=== PATIENT | female | born 1950 | race Caucasian/White ===

== ENCOUNTER 2021-10-05 02:51 | Inpatient (IN) | payer MEDICARE, MEDICAID, SELFPAY ==
[2021-10-05] VITALS (36 sets, daily range): BP systolic 74–114; BP diastolic 49–104; PULSE 14–107; RESP 14–76; TEMP 36.1–36.7; O2SAT 73–100; BMI 30.7
--- NOTE | 2021-10-05 02:52 | PCM.HP.STD ---
HPI - General General Date of Admission: 10/05/21 HPI Narrative AVIVA STAPLETON, is a 72 F with an unclear history is directly admitted in ICU on ventilator state from [place] [facility] after she went there `for shortness of breath, bilateral lower extremity edema and dyspnea. As per the ER physician, Dr Benítez, she does not have a formal diagnosis of CHF or COPD and has never had been tested/PFT. She does not have medical record here in [facility]. She has chronic bilateral lower extremity edema. She has history of coronary artery disease and some biliary pathology unclear. She was found to have Covid rapid antigen negative there. proBNP was elevated about 5000. Twelve-lead EKG normal sinus rhythm. High-sensitivity troponin normal. Initial venous blood gas shows 7.3/mixed PCO2 74 on 3 L of oxygen. Thereafter she was intubated for worsening shortness of breath. After intubation, ABG 7.4 2/45/191/bicarb 30 on 60% FiO2, AC mode ventilator. Patient also was hypotensive after given Diprivan, fentanyl bolus, IV corneum and Versed as patient was agitated. UA shows pyuria, nitrite and LE positive, 2+ bacteria. ECG shows normal sinus rhythm at 73 beats 1, QTC 403 ms. CTA negative for PE but shows bilateral small pleural effusion, left lateral and right with overlying atelectasis. No mediastinal lymphadenopathy. Mild ascites. Chronic mild compression deformity of T3 T6 and T7 with diffuse osteopenia and multilevel degenerative changes. Left IJ CVC catheter was inserted by ER physician for hypotension but patient not on vasopressor but received several IV fluid boluses. Patient came with high blood propofol drip. Liver chemistry shows elevated alkaline phosphatase 413, AST 59. Total bili 1.6. Past medical history: Unclear. Possible CHF, bipolar disorder, compression deformity of thoracic vertebrae as mentioned above. 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 Past surgical history: Hysterectomy. Family history unclear. Social history: Lifelong smoker. [facility] Social History Smoking Status: Unknown if ever smoked ROS ROS Narrative 12 ROS unobtainable as patient is intubated on ventilator Review of Systems ROS Unobtainable: due to endotracheal tube Physical Exam Narrative General: Intubated, sedated on propofol drip. HEENT: Atraumatic, PERRLA, EOMI, Normocephalic Oral: ET tube. 7.5 mm. Neck: Left IJ CVC catheter. No hematoma/bruise. Supple, No JVD, Negative Carotid Bruits Lungs: Air entry diminished in bilateral lung bases. No crepitation/rhonchi Cardiovascular: Regular rate, Regular Rhythm, Normal S1, Normal S2, No murmurs Abdomen: Bowel Sounds Present, Soft, Non Tender, Non-Distended. Mild splenomegaly. : No renal angle tenderness. No suprapubic tenderness. Extremities: Bilateral leg edema, lymphedema, upper extremities also edematous. Skin: Sacral decubitus ulcer, unstageable. Macerated LLE. Musculoskeletal: No Tenderness to Palpation of Joints or Extremities Neurological: Detailed neuro examination unobtainable. Intubated, sedated Psych/Mental Status: Sedated. Assessment & Plan Assessment/Plan (1) Acute and chronic respiratory failure with hypoxia: PLAN: 1. Acute hypoxic respiratory failure, exact etiology unclear possible CHF exacerbation/COPD exacerbation/pneumonia: Patient is being admitted directly in ICU from pulmonary in ER. Her past history is unclear. Patient is not on vasopressor. Started on IV Zosyn empirically. Pneumonia work-up ordered including respiratory panel, urinary antigens, blood culture and endotracheal sputum culture.. Rapid Covid antigen negative. Chest x-ray shows bilateral small pleural effusion, left more than right with overlying atelectasis but no pneumothorax or airspace consolidation. 2D echo is ordered. Consider Lasix when BP stable or hemodynamics permit. EKG sinus rhythm. Cycle high-sensitivity troponins. Labs ordered. Repeat chest x-ray 2. Coronary artery disease with possible CHF exacerbation: Unclear history of whether she had a stents or not. No prior record of echo or a stress test or cardiac cath. She has interstitial edema of lower extremities consistent with third volume spacing. Obtain medical records from PCP office. 3. Chronic liver disease possible primary biliary cholangitis: Alkaline phosphatase and AST elevated. Right upper quadrant sonogram ordered. 4. Sacral decubitus ulcer, unstageable, lower extremity macerated skin but no open ulcer in LE. Wound care nurse consulted. Other comorbidities include bipolar disorder, compression deformity of lower thoracic spine, osteoporosis and multiple old rib fracture as per CT scan: Multiple comorbidities complicates the present care and expect difficult and delay recovery Living will/advanced directive/end of life care: Unverified. Patient came intubated state. Full code unverified. Charges/Coding Visit Charges Inpatient E&M: 32271 Init Hosp L3
--- NOTE | 2021-10-05 03:16 | NURSING ---
PANDEMIC DOCUMENTATION DATE: 10/05/21 TIME: 0231
[2021-10-05 03:41] LABS: Base Excess 4 mmol/L (-2 to +2); Bicarbonate 27.4 mmol/L (22-26); Blood Gas Specimen Type ART; FI02 40; Mode AC; O2 Delivery Device Adult Vent; PEEP 5; PO2 65 mmHG (75-100); RR 14; SITE L Radial; SO2 93 % (95-99); Total Carbon Dioxide 29 mmol/L; Vt 450; pCO2 38.9 mmHg (35-45); pH 7.46 (7.35-7.45)
[2021-10-05 04:05] LABS: Bacteria 0 SEEN /hpf (None Seen); Mucous, Urine 0 SEEN /hpf (<or=2+); Squamous Epithelial Cells - UA 0 SEEN /hpf (5-10); White Blood Cells 0 SEEN /hpf (0-5)
[2021-10-05 04:14] LABS: Color, Urine Amber (Yellow); Glucose, Dipstick Normal (Normal); Ketone-Dipstick 5 mg/dl (Negative); Leukocyte Esterase-Dipstick 25 /ul (Negative); Nitrite-Dipstick Negative (Negative); Occult Blood-Urine 250 /ul (Negative); Protein-Dipstick 100 mg/dl (Negative); Urine Clarity Clear (Clear); Urine Urobilinogen 4 mg/dl (Normal); Urine pH 6.5 (5.0 - 8.0)
[2021-10-05 04:17] LABS: Absolute Neutrophil Count 11.6 X10^3/uL (2.0-7.7); Basophil# 0.01 X10^3/uL; Basophil% 0.1 % (0-1); Hemoglobin 13.3 g/dL (12.0-15.0); Lymphocyte % 3.3 % (19-41); Mean Corp Hgb Conc 30.9 g/dL (32-36); Mean Corpuscular Hgb 30.4 pg (27.0-32.0); Mean Corpuscular Volume 98.4 fL (81-99); Mean Platelet Vol. 8.7 fl (6.2-12.0); Monocyte# 0.13 X10^3/uL; Monocyte% 1.1 % (0-10); NRBC Flagged by Analyzer 0 % (0-5); Neutrophil # 11.58 X10^3/uL (2.7-7.7); POSITIVE COUNT YES; POSITIVE DIFFERENTIAL YES; Platelet Count 50 K/mm3 (150-450); RBC Distribution Width CV 15.1 % (11.6-14.6); RBC Distribution Width SD 53.4 fl (35.1-43.9); Red Blood Count 4.37 M/mm3 (4.2-5.4); White Blood Count 12.2 K/mm3 (4.4-11.0)
[2021-10-05 04:18] LABS: Differential Indicated SCAN CRITERIA MET
[2021-10-05 04:24] LABS: Urine Bilirubin Dipstick 1 mg/dL (Negative)
[2021-10-05 04:29] LABS: Red Blood Cells-Urine > 100 SEEN /hpf (0-5)
[2021-10-05 04:31] LABS: ALB/GLOB Ratio 0.5 RATIO (0.9-2.4); AST(SGOT) 36 U/L (15-37); Alanine Aminotransfer ALT/SGPT 51 U/L (13-56); Albumin, Serum 1.8 g/dL (3.2-5.0); Alkaline Phosphatase 326 U/L (45-117); Anion Gap 5 (5-15); BUN 25 mg/dL (7-18); BUN/Creat Ratio 31.6 RATIO (10-20); Calcium,Total 8.2 mg/dL (8.5-10.1); Chloride 103 mmol/L (98-107); Creatinine, Serum 0.79 mg/dL (0.55-1.02); EST Glomerular Filtration Rate 76 mL/min (>60); Est Glom Filt Rate - Afr Amer 92 mL/min (>60); Globulin 3.7 g/dL (2.2-4.2); Glucose 117 mg/dL (74-106); Magnesium 1.9 mg/dL (1.6-2.6); Potassium 3.7 mmol/L (3.5-5.1); Protein, Total 5.5 g/dL (6.4-8.2); Sodium Level 139 mmol/L (136-145)
[2021-10-05 04:37] LABS: Lactic Acid 1.6 mmol/L (0.4-1.9)
[2021-10-05] MEDS: 0.9% Saline Lock 10 ML Syringe IV (06:46)
[2021-10-05] MEDS: Propofol 10MG/Ml 1,000 MG/100 ML Bottle 5 MG CONT INF ×2 (06:47→18:07)
--- NOTE | 2021-10-05 06:54 | CON.PCM.CC_ITS ---
Assessment & Plan Assessment/Plan (1) Acute and chronic respiratory failure with hypoxia: PLAN: RECOMMENDATIONS: 1. Continue patient on assist control mode of mechanical ventilation. Wean F iO2 for saturations greater than 90%. 2. Start scheduled bronchodilator therapy. 3. Continue empiric antimicrobials, while awaiting infectious work-up. 4. Echocardiogram is pending. 5. Start appropriate GI prophylaxis. Continue appropriate DVT prophylaxis. IMPRESSIONS: 1. Acute hypoxemic respiratory failure The exact precipitating etiology for the patient's acute respiratory decompensation is not clear. However, possible etiologies could include pneumonia, decompensated heart failure or sepsis with an inability to compensate for increased metabolic demand. At the present time, the patient's ventilator requirements are minimal. She will be continued on assist control mode of mechanical ventilation, with FiO2 weaned for saturations greater than 90%. Unfortunately, due to her tenuous hemodynamics, IV Lasix is unable to be admini stered. Plan to continue empiric antimicrobials. Tube feeds can be initiated today from my perspective. Start scheduled bronchodilator therapy. Echocardiogram is currently pending. 2. Thrombocytopenia Unclear chronicity. Continue to monitor daily. No indication for transfusion of platelets. Recommend holding heparin-containing products. 3. History of biliary cirrhosis/hypertension/hypothyroidism/GERD/COPD Complicates care, management, recovery and prognosis. Continue home medications as indicated. TIME: 36 minutes of critical care time, independent of procedures, was spent addressing the patient's acute hypoxemic respiratory failure, review of all data and collaboration with the care team. HPI Consult Data Date of Consult: 10/05/21 HPI Narrative Reason for Consultation: Acute hypoxemic respiratory failure HPI Narrative: The patient is a 71-year-old female, with a history as outlined below, who presented to the intensive care unit on October 05 as a transfer of care from [facility]. The patient had presented to the outside hospital ED on October 04 with complaints of shortness of breath and lower extremity linda a. According to documentation received, the patient has a history of primary biliary cirrhosis, hypertension, hypothyroidism, GERD, and COPD. Outside hospital work-up included the following: Coronavirus antigen testing was negative. BNP was elevated to 4817. Arterial blood gas on 3 L/min revealed a pH of 7.3 with a PCO2 of 74 and PO2 of 89. CTA chest showed no evidence for PE. Small bilateral pleural effusions were noted. The patient did have a urinalysis completed which was positive for nitrites and leukocyte esterase along with 2+ urine bacteria. On arrival to the intensive care unit, the patient was noted to be afebrile and hemodynamically stable. Her most recent lab work revealed a white blood cell count of 12,000 with a platelet count of 50,000. Repeat arterial blood gas on assist control mode mechanical ventilation revealed a pH of 7.46 with a PCO2 of 38 and PO2 of 65. Chemistry profile was unremarkable. [facility] Medical History Bipolar disorder Congestive heart failure (CHF) COPD (chronic obstructive pulmonary disease) Home Medications albuterol sulfate 10/05/21 [History Last Taken Unknown] benzonatate mg PO 10/05/21 [History Last Taken Unknown] dicyclomine mg 10/05/21 [History Last Taken Unknown] fluconazole 10/05/21 [History Last Taken Unknown] fluticasone propion-salmeterol [Advair Diskus] INHALATION 10/05/21 [History Last Taken Unknown] methocarbamol mg 10/05/21 [History Last Taken Unknown] metoprolol tartrate 10/05/21 [History Last Taken Unknown] mupirocin TOPICAL 10/05/21 [History Last Taken Unknown] nitroglycerin mg 10/05/21 [History Last Taken Unknown] oxycodone 10/05/21 [History Last Taken Unknown] pantoprazole PO 10/05/21 [History Last Taken Unknown] spironolactone 10/05/21 [History Last Taken Unknown] torsemide mg 10/05/21 [History Last Taken Unknown] triamcinolone acetonide applic TOPICAL 10/05/21 [History Last Taken Unknown] ursodiol 10/05/21 [History Last Taken Unknown] Allergy/AdvReac Type Severity Reaction Status Date / Time cyclobenzaprine Allergy Swelling Verified 10/05/21 04:45 doxycycline Allergy Hives Verified 10/05/21 04:45 Iodinated Contrast Media [CT] Allergy Swelling Verified 10/05/21 04:45 Sulfa (Sulfonamide Allergy Swelling Verified 10/05/21 04:45 Antibiotics) acetaminophen AdvReac Nausea Verified 10/05/21 04:45 [From Tylenol-Codeine #3] codeine AdvReac Nausea Verified 10/05/21 04:45 [From Tylenol-Codeine #3] erythromycin base AdvReac Upset Verified 10/05/21 04:45 Stomach metronidazole AdvReac Upset Verified 10/05/21 04:45 Stomach tetracycline AdvReac PT UNSURE Verified 10/05/21 04:45 OF REACTION Family History unable to obtain Social History Smoking Status: Unknown if ever smoked ROS Review of Systems ROS Unobtainable: due to encephalopathy and due to endotracheal tube Physical Exam Const no apparent distress General Appearance: intubated and patient mechanically ventilated Nutritional Appearance: obese HEENT normocephalic and head/scalp atraumatic Mouth: endotracheal tube in place and OG tube in place Eyes PERRL, EOMs intact bilaterally and conjunctivae normal Neck supple General: trachea midline and CVC in place Chest inspection of chest normal Resp Auscultation: diminished lung sounds Cardio regular rate and regular rhythm GI normal to inspection, nondistended, normoactive bowel sounds Extremity Extremity Narrative: Lymphedema of upper extremities noted as well. General Extremity: edema bilateral lower extremity Skin Skin Narrative: Bilateral lower extremity erythema Neuro Sensorium / Orientation: sedated on vent Lab / Micro Data Result Diagrams: 10/05/21 04:00 10/05/21 04:00 Labs: Laboratory Results - last 24 hr 10/05/21 03:45: Urine Color Pati, Urine Clarity Clear, Urine pH 6.5, Ur Specific [place] 1.010, Urine Protein 100 H, Urine Glucose (UA) Normal, Urine Ketones 5 H, Urine Occult Blood 250 H, Urine Nitrite Negative, Urine Bilirubin 1 H, Urine Urobilinogen 4 H, Ur Leukocyte Esterase 25 H, Urine RBC > 100 SEEN, Urine WBC 0 SEEN, Ur Squamous Epith Cells 0 SEEN, Urine Bacteria 0 SEEN, Urine Mucus 0 SEEN 10/05/21 04:00: WBC 12.2 H, RBC 4.37, Hgb 13.3, Hct 43.0, MCV 98.4, MCH 30.4, MCHC 30.9 L, RDW Std Deviation 53.4 H, RDW Coeff of Krissy 15.1 H, Plt Count 50 L*, MPV 8.7, Immature Gran % (Auto) 0.500, Neut % (Auto) 95.0 H, Lymph % (Auto) 3.3 L, Holmes % (Auto) 1.1, Eos % (Auto) 0.0, Baso % (Auto) 0.1, Absolute Neuts (auto) 11.6 H, Absolute Lymphs (auto) 0.40 L, Nucleated RBC % 0 10/05/21 04:00: Sodium 139, Potassium 3.7, Chloride 103, Carbon Dioxide 31.0, Anion Gap 5, BUN 25 H, Creatinine 0.79, Estim Creat Clear Calc 47.10, Est GFR (MDRD) Af Amer 92, Est GFR (MDRD) Non-Af 76, BUN/Creatinine Ratio 31.6 H, Glucose 117 H, Calcium 8.2 L, Magnesium 1.9, Total Bilirubin 1.40 H, AST 36, ALT 51, Alkaline Phosphatase 326 H, Total Protein 5.5 L, Albumin 1.8 L, Globulin 3.7, Albumin/Globulin Ratio 0.5 L 10/05/21 04:00: Lactic Acid 1.6 Micro: Microbiology 10/05/21 03:45 Urine Catheter - Henson Legionella Antigen - Final 10/05/21 03:45 Urine Catheter - Henson Streptococcus pneumoniae Antigen (M - Final ABG Data ABG results: ABG 10/05/21 03:35 Specimen Type ART Sample Site L Radial pH 7.46 H Bicarbonate Actual 27.4 H Total CO2 29 Base Excess 4 H O2 Saturation 93 L O2 % 40 ABG pCO2 38.9 ABG pO2 65 L Noe Test N/A Respiration Rate 14 O2 Delivery Device Adult Vent Vent Mode AC Tidal Volume 450 POC PEEP 5 Charges/Coding Procedures Hospitalists Procedures: 63891 Critial Care 1st Hr
[2021-10-05] MEDS: CHLORHEXIDINE GLUC 2% CLOTH 1 EACH TOWELETTE TOPICAL ×2 (07:12→10:10)
[2021-10-05 07:23] LABS: Troponin-I HS 28 pg/mL (3.0-54.0)
[2021-10-05 08:12] LABS: CPK Total, Creatine Kinase 67 U/L (26-192); Triglycerides 98 mg/dL
[2021-10-05 09:07] LABS: Troponin-I HS 25 pg/mL (3.0-54.0)
[2021-10-05] MEDS: Chlorhexidine 15 ML PO ×2 (10:09→20:55)
--- NOTE | 2021-10-05 10:47 | WOUNDNOTE ---
wound photo: buttocks
--- NOTE | 2021-10-05 10:47 | WOUNDNOTE ---
wound photo: right lower leg
--- NOTE | 2021-10-05 10:48 | WOUNDNOTE ---
wound photo: left dorsal foot
[2021-10-05 11:47] LABS: M R Staph aureus DNA By PCR Negative (Negative); Probe Check PASS; Specimen Processing Control PASS
--- NOTE | 2021-10-05 12:15 | CASEMGMT ---
BELLA VICTORIA ASSESSMENT Pt currently intubated and sedated. BELLA VICTORIA to room to meet with pt's daughter, Aneta Avila, who is at bedside, for initial transition planning/care coordination assessment. BELLA VICTORIA introduced self and role at [facility]. Care providers, pharmacy, and demographics verified/updated at this time. PCP: Luana Pineda NP, in [place] Specialists: none Preferred Pharmacy: [facility] Retail Insurance: [facility], YULISA crossover Prescription Benefit: Yes Living Will/HPOA: Pt does not currently have LW/HCPOA LNOK: Dtr, Aneta Avila. Pt has 2 other daughters and a son. Dtr Mery, and son, Yoshi, have been estranged from pt and have not seen her for about 6 yrs. Dtr, Makayla, has not seen pt since around June of this year. Aneta states she has no contact information for any of them and does not know anyone who would have this information either. Living Arrangements: Lives w/dtr, Aneta, and son, Cheko in 2-story home. Pt is set up on first floor. Pt has Passport services/aide thru [employer] in [place]. Aneta works for [employer] as an aide and gets paid to care for pt thru them. Aneta and Cheko provide all care for pt. Per Aenta, pt has not been eating or sleeping well for the past couple of months. She states she has also been refusing care at times and sometimes will not allow for her to change her depends. Transportation: Aneta and Cheko DME: Has the following DME: shower chair, BSC, walker, W/C, medical alert button, lift chair, and nebulizer HHC/SNF: No hx of SNF. Has had HHC in the past--[facility] in [place]. Pt is not currently active w/HHC agency. PLAN: TBD by course of treatment and progress w/therapy. Lynsey PÉREZ RN, CM
--- NOTE | 2021-10-05 12:40 | CASEMGMT ---
Social Work Per GAVIN Boone pt is receiving services from [employer]. KRIS placed call to [facility] and spoke with pt career development specialist Raeann. Pt is receiving 6hr of aid services a day, 7 days a week through [facility]. Pt also receives home delivered meals and has an emergency response system. Tia is pt new registered nurse hh case manager and has not met with pt yet. KRIS will notify Tia at time of discharge. , . OSWALDO Cruz
[2021-10-05] MEDS: Vital AF 1.2 Cal Liquid 1,000 ML 50 ML GT (12:44)
[2021-10-05 13:17] LABS: Troponin-I HS 20 pg/mL (3.0-54.0)
[2021-10-05] MEDS: Ipratropium/Albuterol Sulfate 3 ML AMPUL.NEB INHALATION (19:05)
--- NOTE | 2021-10-05 20:12 | PCM.HOSP.N ---
Hospitalist Note Patient seen and examined today briefly, she remains sedated and on the ventilator. I talked briefly with pulmonary medicine about her care. Pulmonary medicine feels that the patient may have respiratory failure from CHF. I will order an echocardiogram to be performed tomorrow. Continue present care for now.
--- NOTE | 2021-10-05 20:16 | ECHOCS_ITS ---
Reason For Study: SOB Procedure This was a 2D Doppler, Color Flow transthoracic echocardiogram. The study was technically difficult. Patient intubated, scanned supine. Exam performed portable in ICU/CCU. Left Ventricle Normal LV size. The estimated ejection fraction is 60 %. No evidence for diastolic dysfunction. No regional wall motion abnormalities noted. Right Ventricle Normal RV size. Normal systolic function. Atria Normal left atrium. Normal right atrium. No doppler evidence for ASD. Mitral Valve There is no mitral valve stenosis. No mitral valve insufficiency. Tricuspid Valve There is no tricuspid stenosis. No tricuspid valve insufficiency. Unable to estimate RV systolic pressure due to inadequate jet, pulmonary artery pressure probably normal. Aortic Valve Trisinus/trileaflet aortic valve. There is no aortic stenosis. No aortic valve insufficiency. Pulmonic Valve There is no pulmonic valvular stenosis. No pulmonic valve insufficiency. Great Vessels Normal aortic root. Pericardium/Pleural No pericardial effusion. Medication Diluted definity 2ml given slow IV push to enhance endocardial definition. MMode/2D Measurements & Calculations LVIDd: 3.2 cm IVSd: 1.2 cm Ao root diam: 2.7 cm LVIDs: 1.8 cm LVPWd: 1.3 cm RVDd: 3.0 cm FS: 44.2 % LAV(MOD-sp4): 22.1 ml LA A4 area: 11.8 cm2 LA dimension(2D): 2.3 cm RA A4 area: 12.2 cm2 Doppler Measurements & Calculations MV E max narayan: 62.7 cm/sec Lat Peak E' Narayan: 7.0 cm/sec Med Peak E' Narayan: 4.7 cm/sec MV A max narayan: 93.9 cm/sec E/E' lat: 9.0 E/E' med: 13.3 MV E/A: 0.67 Ao V2 max: 141.8 cm/sec LV V1 max: 117.2 cm/sec PA V2 max: 100.9 cm/sec Ao max P.0 mmHg LV V1 max P.5 mmHg ECHO/Echo Complete W/ Contrast Interpretation Summary The estimated ejection fraction is 60 %. No evidence for diastolic dysfunction. Ordering Physician: Yuri Cruz Referring Physician: Maty Pineda Performed By: Kate Moreno RDCS
[2021-10-06] VITALS (41 sets, daily range): BP systolic 71–113; BP diastolic 42–82; PULSE 53–109; RESP 14–30; TEMP 36.6–37.2; O2SAT 94–100
[2021-10-06] MEDS: Ipratropium/Albuterol Sulfate 3 ML AMPUL.NEB INHALATION ×2 (01:33→14:05)
[2021-10-06] MEDS: Propofol 10MG/Ml 1,000 MG/100 ML Bottle 7.5 MG CONT INF (01:50)
[2021-10-06] MEDS: CHLORHEXIDINE GLUC 2% CLOTH 1 EACH TOWELETTE TOPICAL (03:18)
[2021-10-06] MEDS: 0.9% Saline Lock 10 ML Syringe IV ×2 (03:25→03:27)
[2021-10-06 03:36] LABS: Absolute Lymphocyte Count 0.92 X10^3/uL (0.83-4.51); Absolute Neutrophil Count 5.9 X10^3/uL (2.0-7.7); Basophil# 0.01 X10^3/uL; Basophil% 0.1 % (0-1); Eosinophil# 0.08 X10^3/uL; Eosinophils% 1.1 % (0-5); Hematocrit 35.4 % (37-47); Hemoglobin 11.2 g/dL (12.0-15.0); Lymphocyte # 0.92 X10^3/ul (0.83-4.51); Lymphocyte % 12.5 % (19-41); Mean Corp Hgb Conc 31.6 g/dL (32-36); Mean Corpuscular Hgb 30.5 pg (27.0-32.0); Mean Corpuscular Volume 96.5 fL (81-99); Mean Platelet Vol. 10.5 fl (6.2-12.0); Monocyte# 0.36 X10^3/uL; Monocyte% 4.9 % (0-10); NRBC Flagged by Analyzer 0 % (0-5); Neutrophil # 5.93 X10^3/uL (2.7-7.7); Neutrophil % 80.9 % (47-70); POSITIVE COUNT YES; Platelet Count 54 K/mm3 (150-450); RBC Distribution Width CV 15.8 % (11.6-14.6); RBC Distribution Width SD 54.4 fl (35.1-43.9); Red Blood Count 3.67 M/mm3 (4.2-5.4); White Blood Count 7.3 K/mm3 (4.4-11.0)
[2021-10-06 03:56] LABS: Anion Gap 7 (5-15); BUN 30 mg/dL (7-18); BUN/Creat Ratio 29.4 RATIO (10-20); Chloride 104 mmol/L (98-107); Creatinine, Serum 1.02 mg/dL (0.55-1.02); EST Glomerular Filtration Rate 57 mL/min (>60); Est Glom Filt Rate - Afr Amer 69 mL/min (>60); Estimated Creatinine Clearance 46.18 ml/min; Glucose 108 mg/dL (74-106); Potassium 3.6 mmol/L (3.5-5.1); Sodium Level 142 mmol/L (136-145)
--- NOTE | 2021-10-06 05:55 | US_ITS ---
STUDY: ABDOMINAL ULTRASOUND - RIGHT UPPER QUADRANT REASON FOR VISIT: Female, 71 years old possible biliary disease/PBC/Biliary cancer?, TECHNIQUE: Ultrasound evaluation of the right upper quadrant was performed with real-time and static solis-scale imaging. TECHNICAL QUALITY: Adequate. COMPARISON: None. FINDINGS: Liver: The liver measures 15.5 cm. There is an elongated appearance of the left hepatic lobe with lobulation. There is a heterogeneous echogenicity of the liver. The bile ducts are within normal limits. There is hepatic color flow. The direction of portal flow is hepatopetal. There is no demonstrated mass lesion. Gallbladder: The gallbladder is surgically removed. Common Bile Duct (C.B.D.): The common bile duct measures 6 mm. Pancreas: Normal size of the head, body of the pancreas. There is normal echogenicity of the pancreas. There is no demonstrated pancreatic mass or cyst. There is limited visualization of the tail the pancreas. Right Kidney: Normal size of the right kidney. The right kidney measures 9.9 x 4.2 x 3.8 cm. Normal renal cortex. The right cortex measures 1.1 cm. There is no demonstrated renal mass or cyst. There is no right hydronephrosis. Moderate ascites. US/Abdomen Limited IMPRESSION: Cirrhosis. Ascites. Electronically Signed: Diana Charles MD at 11:59 EST Tel , Service support ,
--- NOTE | 2021-10-06 05:55 | RAD_ITS ---
STUDY: X-RAY CHEST REASON FOR EXAM: Female, 71 years old. TUBES placement TECHNIQUE: Single AP portable view of the chest. COMPARISON: None. FINDINGS: Low-lying ET tube at the cassie, recommend retraction by roughly 4 cm. Enteric tube in the stomach. Left IJ central venous catheter with tip in the mid SVC. Right lung is clear. Left lower lobe airspace disease and effusion RAD/Chest 1 View (Portable) IMPRESSION: Low-lying ET tube at the cassie, recommend retraction by roughly 4 cm. Remainder as above with left lower lobe airspace disease and effusion Electronically Signed: Red Cardenas DO at 0:36 EST Tel , Service support ,
--- NOTE | 2021-10-06 07:13 | PCM.PN.INT ---
Assessment & Plan Assessment/Plan (1) Acute and chronic respiratory failure with hypoxia: PLAN: RECOMMENDATIONS: 1. Continue patient on assist control mode of mechanical ventilation. Wean FiO2 for saturations greater than 90%. 2. Continue scheduled bronchodilator therapy. 3. Continue empiric antimicrobials, while awaiting infectious work-up. 4. Echocardiogram is pending. 5. Continue appropriate GI prophylaxis. 6. Continue to hold pharmacologic DVT prophylaxis due to thrombocytopenia. 7. Start Precedex and wean patient from propofol in hopes that this will assist in weaning from ventilatory support. IMPRESSIONS: 1. Acute hypoxemic respiratory failure The exact precipitating etiology for the patient's acute respiratory decompensation is not clear. However, possible etiologies could include pneumonia, decompensated heart failure or sepsis with an inability to compensate for increased metabolic demand. At the present time, the patient's ventilator requirements are minimal. She will be continued on assist control mode of mechanical ventilation, with FiO2 weaned for saturations greater than 90%. Unfortunately, due to her tenuous hemodynamics, IV Lasix is unable to be administered. Plan to continue empiric antimicrobials. Tube feeds will be continued as tolerated, as well as scheduled bronchodilators. Echocardiogram is currently pending. Will transition the patient from propofol to Precedex today in hopes that this will assist in weaning from invasive mechanical ventilatory support. 2. Thrombocytopenia Unclear chronicity. Continue to monitor daily. No indication for transfusion of platelets. Continue to hold heparin-containing products. 3. History of biliary cirrhosis/hypertension/hypothyroidism/GERD/COPD Complicates care, management, recovery and prognosis. Continue home medications as indicated. TIME: 33 minutes of critical care time, independent of procedures, was spent addressing the patient's acute hypoxemic respiratory failure, review of all data and collaboration with the care team. Subjective Subjective The patient was seen and examined at the bedside this morning. Events from the last 24 hours have been reviewed. The patient is currently afebrile, hemodynamically stable and maintaining appropriate oxygen saturations on assist control mode of mechanical ventilation with an FiO2 requirement of 30% and PEEP of 5. The patient failed her spontaneous breathing trial this morning due to tachypnea and low tidal volumes. She is currently sedated on propofol and fentanyl. She has been tolerant of tube feeds. She is currently documented to be overall net +600 mL for the hospitalization. The patient remains on empiric antimicrobials and bronchodilators. Platelet count remains low at 54,000. Pharmacologic prophylaxis remains on hold. Echocardiogram has yet to be completed. Objective Data Objective Data The patient's most recent lab work, culture data and imaging studies have all been personally reviewed. Respiratory viral panel was negative. Strep and urine Legionella antigens were negative. Blood, urine and sputum cultures are pending. Vital Signs: Vital Signs Temp Pulse Resp BP Pulse Ox 97.8 F 72 14 113/66 100 10/06/21 03:00 10/06/21 07:02 10/06/21 07:02 10/06/21 07:00 10/06/21 07:02 Oxygen Delivery Method Mechanical Ventilator Weight: 84 kg Body Mass Index (BMI) 30.7 Intake & Output: Intake and Output for Last 24 Hours 10/04/21 10/05/21 10/06/21 23:59 23:59 23:59 Intake Total 606.01 / 808.61 476.90 / 476.90 Output Total 350 / 400 125 / 125 Balance 256.01 / 408.61 351.90 / 351.90 Lab / Micro Data Attestation: I reviewed the patient's lab results. Result Diagrams: 10/06/21 03:20 10/06/21 03:20 Labs: Laboratory Results - last 24 hr 10/05/21 03:45: MRSA (PCR) Negative 10/05/21 06:45: Troponin I High Sens 28 10/05/21 06:45: Total Creatine Kinase 67, Triglycerides 98 10/05/21 08:25: Troponin I High Sens 25 10/05/21 12:35: Troponin I High Sens 20 10/06/21 03:20: WBC 7.3, RBC 3.67 L, Hgb 11.2 L, Hct 35.4 L, MCV 96.5, MCH 30.5, MCHC 31.6 L, RDW Std Deviation 54.4 H, RDW Coeff of Krissy 15.8 H, Plt Count 54 L, MPV 10.5, Immature Gran % (Auto) 0.500, Neut % (Auto) 80.9 H, Lymph % (Auto) 12.5 L, [place] % (Auto) 4.9, Eos % (Auto) 1.1, Baso % (Auto) 0.1, Absolute Neuts (auto) 5.9, Absolute Lymphs (auto) 0.92, Nucleated RBC % 0 10/06/21 03:20: Sodium 142, Potassium 3.6, Chloride 104, Carbon Dioxide 31.0, Anion Gap 7, BUN 30 H, Creatinine 1.02, Estim Creat Clear Calc 46.18, Est GFR (MDRD) Af Amer 69, Est GFR (MDRD) Non-Af 57 L, BUN/Creatinine Ratio 29.4 H, Glucose 108 H, Calcium 8.0 L Micro: Microbiology 10/05/21 04:10 Sputum, Tracheal Aspirate Gram Stain - Final 10/05/21 09:25 Mucosa - Nasopharyngeal Respiratory Panel (PCR) - Final 10/05/21 03:45 Urine Catheter - Henson Legionella Antigen - Final 10/05/21 03:45 Urine Catheter - Henson Streptococcus pneumoniae Antigen (M - Final Physical Exam Const no apparent distress General Appearance: intubated and patient mechanically ventilated Nutritional Appearance: obese HEENT normocephalic and head/scalp atraumatic Mouth: endotracheal tube in place and OG tube in place Eyes PERRL, EOMs intact bilaterally and conjunctivae normal Neck supple General: trachea midline and CVC in place Chest inspection of chest normal Resp Auscultation: diminished lung sounds Cardio regular rate and regular rhythm GI normal to inspection, nondistended, normoactive bowel sounds Extremity Extremity Narrative: Lymphedema of upper extremities noted as well. General Extremity: edema bilateral lower extremity Skin Skin Narrative: Bilateral lower extremity erythema Neuro Sensorium / Orientation: sedated on vent Charges/Coding Procedures Hospitalists Procedures: 59491 Critial Care 1st Hr
[2021-10-06] MEDS: Chlorhexidine 15 ML PO ×2 (09:25→20:40)
[2021-10-06 09:40] LABS: International Normalized Ratio 1.1; Prothrombin Time (Protime)PT. 13.4 SECONDS (11.7-14.9)
[2021-10-06 09:41] LABS: Fibrinogen 412 mg/dl (203-444); Partial Thromboplast Time 24.1 Seconds (24.1-36.2)
--- NOTE | 2021-10-06 16:28 | PN.HOSP_ITS ---
Subjective Subjective Patient remains intubated and sedated although she is alert and follows commands. Breathing trial was assessed and patient did poorly with early fatigue and tachypnea. Tolerated about 15 minutes today. Objective Data Objective Data Vital Signs: Vital Signs Temp Pulse Resp BP Pulse Ox 97.9 F 60 14 78/50 L 96 10/06/21 16:00 10/06/21 16:00 10/06/21 16:00 10/06/21 16:00 10/06/21 16:00 Oxygen Flow Rate (L/min) 25 Oxygen Delivery Method Mechanical Ventilator Weight: 84 kg Body Mass Index (BMI) 30.7 Intake & Output: Intake and Output for Last 24 Hours 10/04/21 10/05/21 10/06/21 23:59 23:59 23:59 Intake Total 606.01 / 808.61 1041.37 / 1041.37 Output Total 350 / 400 250 / 250 Balance 256.01 / 408.61 791.37 / 791.37 Lab / Micro Data Result Diagrams: 10/06/21 03:20 10/06/21 03:20 Labs: Laboratory Results - last 24 hr 10/06/21 03:20: WBC 7.3, RBC 3.67 L, Hgb 11.2 L, Hct 35.4 L, MCV 96.5, MCH 30.5, MCHC 31.6 L, RDW Std Deviation 54.4 H, RDW Coeff of Krissy 15.8 H, Plt Count 54 L, MPV 10.5, Immature Gran % (Auto) 0.500, Neut % (Auto) 80.9 H, Lymph % (Auto) 12.5 L, [place] % (Auto) 4.9, Eos % (Auto) 1.1, Baso % (Auto) 0.1, Absolute Neuts (auto) 5.9, Absolute Lymphs (auto) 0.92, Nucleated RBC % 0, Diff Path Review March10/06/21 03:20: Sodium 142, Potassium 3.6, Chloride 104, Carbon Dioxide 31.0, Anion Gap 7, BUN 30 H, Creatinine 1.02, Estim Creat Clear Calc 46.18, Est GFR (MDRD) Af Amer 69, Est GFR (MDRD) Non-Af 57 L, BUN/Creatinine Ratio 29.4 H, Glucose 108 H, Calcium 8.0 L 10/06/21 07:35: PT 13.4, INR 1.1, APTT 24.1, Fibrinogen 412 Micro: Microbiology 10/05/21 08:25 Urine Catheter - Henson Urine Culture - Preliminary Culture exhibits no growth. 10/05/21 04:10 Sputum, Tracheal Aspirate Gram Stain - Final 10/05/21 04:10 Sputum, Tracheal Aspirate Respiratory Culture - Preliminary Appears to be normal respiratory christel. Further studies to follow. 10/05/21 09:25 Mucosa - Nasopharyngeal Respiratory Panel (PCR) - Final 10/05/21 03:45 Urine Catheter - Henson Legionella Antigen - Final 10/05/21 03:45 Urine Catheter - Henson Streptococcus pneumoniae Antigen (M - Final Radiography Diagnostic Testing: Radiology Impression Echocardiogram 10/05/21 20:16 Interpretation Summary The estimated ejection fraction is 60 %. No evidence for diastolic dysfunction. Ordering Physician: Yuri Cruz Referring Physician: Maty Pineda Performed By: Kate Moreno RENEE Abdomen Ultrasound 10/06/21 05:55 IMPRESSION: Cirrhosis. Ascites. Electronically Signed: Dinaa Charles MD at 11:59 EST Tel , Service support , Physical Exam Const alert and no apparent distress Constitutional Narrative: Obese older white female sitting up in bed on a ventilator but awake and following commands, appears comfortable and nontoxic Exam Limitations: language barrier Nutritional Appearance: obese HEENT head/scalp atraumatic and moist oral mucous membranes HEENT Narrative: ET tube in place Head and Scalp: normocephalic Resp normal respiratory effort, no retractions and no use of accessory muscles Resp Narrative: Diminished but clear Auscultation: Negative for crackles, rales, rhonchi or wheezes Cardio regular rate, regular rhythm, S1 normal heart sound, S2 normal heart sound, no murmurs, no rub, no gallops, no clicks and no JVD GI normal to inspection, nondistended, normoactive bowel sounds, soft to palpation, non-tender and non-distended Extremity Extremity Narrative: Bilateral lower extremity edema, some upper extremity edema, no cyanosis or clubbing Peripheral Pulses: Yes pulses 2+ throughout Skin no wounds, no jaundice, no petechiae and no mottling Skin Narrative: Erythema bilateral lower extremities Neuro moves all extremities and no focal motor deficits Neuro Narrative: Follows commands Sensorium / Orientation: awake and alert Psych Psych Narrative: Unable to fully assess secondary to patient being on ventilator Assessment & Plan Assessment/Plan (1) Acute and chronic respiratory failure with hypoxia: (2) Acute anemia: (3) Thrombocytopenia: PLAN: Acute hypoxic respiratory failure -Etiology is currently unclear -Continue empiric antibiotics as cultures are still pending -Sputum is negative other than for possible mild aspiration pneumonia is normal christel are growing -Needing minimal oxygen support -Echo does not show any signs of heart failure with an EF of 60% and normal diastolic function -Hold diuresis -Covid negative -Viral PCR negative -Urine culture negative -Blood cultures are pending -Legionella and strep pneumo antigen negative -We will check bilateral lower extremity Dopplers with edema to rule out DVT -Patient remains intubated and on ventilator although minimal oxygen requirements at this time -Failed weaning trial today and sedation has been altered from propofol to Precedex -Continue tube feed as ordered -Continue GI prophylaxis Mild acute anemia-normocytic -Suspect related to acute hospitalization -No signs of acute blood loss -Continue to monitor Thrombocytopenia -Platelet count is 54,000 today -Coags and fibrinogen assessed to rule out chronic DIC -Peripheral smear pending -Liver ultrasound performed and shows cirrhosis -Unfortunately the spleen was not observed although I suspect with cirrhosis she likely has splenomegaly causing her thrombocytopenia Cirrhosis -Likely the etiology for her edema -INR is 1.1 -Consider GI involvement but will discuss with family first History of biliary cirrhosis -Ultrasound pending -LFTs were normal on admission Hypothyroidism -Continue home levothyroxine GERD -Continue home PPI COPD -Continue aerosols as ordered -Patient was smoking prior to admission Obesity -BMI 30.8 -Complicates overall treatment, prognosis, outcomes DVT prophylaxis -SCDs with thrombocytopenia CODE STATUS -Full code unverified Charges/Coding Visit Charges Inpatient E&M: 45704 Subs Hosp L2
--- NOTE | 2021-10-06 16:29 | VDLE_ITS ---
Reason For Study: Swelling RIGHT LEFT GSV is normal. GSV is normal. CFV is compressible, spontaneous, phasic, CFV is compressible, spontaneous, phasic, competent and demonstrates normal competent, and demonstrates normal augmentation. augmentation. FV is compressible, spontaneous, phasic, FV visualized with color only, unable to competent and demonstrates normal tolerate compression. Normal venous flow augmentation. noted. POP V is compressible, spontaneous, phasic, POP V is compressible, spontaneous, phasic, competent and demonstrates normal competent and demonstrates normal augmentation. augmentation. T/P Trunk is compressible. T/P Trunk is compressible. PTV is compressible. PTV is compressible. RT PerV is compressible. LT PerV is compressible. Procedure This is a venous duplex using B-mode, color flow and spectral Doppler. Exam performed portable in ICU/CCU. A preliminary report was called and/or faxed to RN. VL/Venous Duplex US - Joseph Extrem Interpretation Summary No evidence for acute deep venous thrombosis bilateral lower extremities with p atent and compressible bilateral great saphenous veins. Exam limitations as noted. Ordering Physician: Marguerite Moss Referring Physician: Maty Pineda Performed By: Venessa Briscoe RVT
[2021-10-07] VITALS (31 sets, daily range): BP systolic 90–133; BP diastolic 52–95; PULSE 50–116; RESP 14–39; TEMP 36.6–37; O2SAT 90–100
[2021-10-07] MEDS: Vital AF 1.2 Cal Liquid 1,000 ML 50 ML GT (01:27)
[2021-10-07 05:05] LABS: Absolute Lymphocyte Count 0.79 X10^3/uL (0.83-4.51); Absolute Neutrophil Count 4.2 X10^3/uL (2.0-7.7); Basophil# 0.01 X10^3/uL; Basophil% 0.2 % (0-1); Eosinophil# 0.07 X10^3/uL; Eosinophils% 1.3 % (0-5); Hematocrit 33.7 % (37-47); Lymphocyte # 0.79 X10^3/ul (0.83-4.51); Lymphocyte % 14.6 % (19-41); Mean Corp Hgb Conc 32.6 g/dL (32-36); Mean Corpuscular Hgb 31.3 pg (27.0-32.0); Mean Platelet Vol. 10.1 fl (6.2-12.0); Monocyte# 0.27 X10^3/uL; NRBC Flagged by Analyzer 0 % (0-5); Neutrophil # 4.22 X10^3/uL (2.7-7.7); Neutrophil % 78.2 % (47-70); POSITIVE COUNT YES; RBC Distribution Width CV 15.9 % (11.6-14.6); RBC Distribution Width SD 54.8 fl (35.1-43.9); Red Blood Count 3.51 M/mm3 (4.2-5.4); White Blood Count 5.4 K/mm3 (4.4-11.0)
[2021-10-07 05:20] LABS: Differential Indicated SCAN CRITERIA MET; Platelet Count 42 K/mm3 (150-450)
[2021-10-07 05:29] LABS: Anion Gap 8 (5-15); BUN 31 mg/dL (7-18); Calcium,Total 7.9 mg/dL (8.5-10.1); Chloride 105 mmol/L (98-107); Creatinine, Serum 0.86 mg/dL (0.55-1.02); EST Glomerular Filtration Rate 69 mL/min (>60); Est Glom Filt Rate - Afr Amer 84 mL/min (>60); Estimated Creatinine Clearance 54.77 ml/min; Glucose 165 mg/dL (74-106); Potassium 3.1 mmol/L (3.5-5.1); Sodium Level 142 mmol/L (136-145)
[2021-10-07 05:55] LABS: Differential Comment SCANNED; Platelet Estimate MKD DEC (ADEQ)
--- NOTE | 2021-10-07 06:38 | PN.CC_ITS ---
Assessment & Plan Assessment/Plan (1) Acute and chronic respiratory failure with hypoxia: PLAN: RECOMMENDATIONS: 1. Proceed with a trial of extubation this morning. 2. Once extubated, wean supplemental oxygen to maintain saturations at or above 90%. 3. Bedside swallow evaluation with dietary advancement accordingly. 4. Continue empiric antimicrobials to complete 7-day treatment course. 5. Continue to hold pharmacologic DVT prophylaxis due to thrombocytopenia. 6. Encourage incentive spirometer use and mobilize patient as tolerated. IMPRESSIONS: 1. Acute hypoxemic respiratory failure The exact precipitating etiology for the patient's acute respiratory decompensation is not clear. However, possible etiologies could include pneumonia, decompensated heart failure or sepsis with an inability to compensate for increased metabolic demand. At the present time, the patient's ventilator requirements are minimal. With supportive measures including antimicrobials, the patient was able to be extubated on October 07. Her echocardiogram revealed intact systolic function. Once extubated, supplemental oxygen will be weaned to maintain saturations at or above 90%. I would recommend completing an empiric course of antimicrobials x7 days. Diet can be advanced once swallow evaluation is completed. Encourage incentive spirometer use and mobilize patient as tolerated. 2. Thrombocytopenia Likely secondary to underlying cirrhosis identified on ultrasound. This is a chronic medical condition for the patient. Continue to monitor daily. No indication for transfusion of platelets. 3. History of biliary cirrhosis/hypertension/hypothyroidism/GERD/COPD Complicates care, management, recovery and prognosis. Continue home medications as indicated. TIME: 32 minutes of critical care time, independent of procedures, was spent addressing the patient's acute hypoxemic respiratory failure, review of all data and collaboration with the care team. Subjective Subjective The patient was seen and examined at the bedside this morning. Events from the last 24 hours have been reviewed. The patient is currently afebrile, hemodynamically stable and maintaining appropriate oxygen saturations on pressure support mode mechanical ventilation with an FiO2 requirement of 21%. The patient has done well on her spontaneous breathing trial this morning. She is currently documented to be overall net +2.5 L for the hospitalization. She remains on empiric antimicrobials. Platelet count remains low at 42,000. Potassium is low at 3.1. Objective Data Objective Data The patient's most recent lab work, culture data and imaging studies have all been personally reviewed. Respiratory viral panel was negative. Strep and urine Legionella antigens were negative. Blood, urine and sputum cultures are pending. Vital Signs: Vital Signs Temp Pulse Resp BP Pulse Ox 98.6 F 58 L 26 H 96/54 L 91 10/07/21 04:00 10/07/21 06:00 10/07/21 06:00 10/07/21 06:00 10/07/21 06:00 Oxygen Flow Rate (L/min) 25 Oxygen Delivery Method Mechanical Ventilator Weight: 84 kg Body Mass Index (BMI) 30.7 Intake & Output: Intake and Output for Last 24 Hours 10/05/21 10/06/21 10/07/21 23:59 23:59 23:59 Intake Total 606.01 / 808.61 1972.87 / 2088.37 352.95 / 352.95 Output Total 350 / 400 350 / 500 150 / 150 Balance 256.01 / 408.61 1622.87 / 1588.37 202.95 / 202.95 Lab / Micro Data Attestation: I reviewed the patient's lab results. Result Diagrams: 10/07/21 04:46 10/07/21 04:46 Labs: Laboratory Results - last 24 hr 10/06/21 03:20: WBC 7.3, RBC 3.67 L, Hgb 11.2 L, Hct 35.4 L, MCV 96.5, MCH 30.5, MCHC 31.6 L, RDW Std Deviation 54.4 H, RDW Coeff of Krissy 15.8 H, Plt Count 54 L, MPV 10.5, Immature Gran % (Auto) 0.500, Neut % (Auto) 80.9 H, Lymph % (Auto) 12.5 L, [place] % (Auto) 4.9, Eos % (Auto) 1.1, Baso % (Auto) 0.1, Absolute Neuts (auto) 5.9, Absolute Lymphs (auto) 0.92, Nucleated RBC % 0, Diff Path Review March10/06/21 03:20: Sodium 142, Potassium 3.6, Chloride 104, Carbon Dioxide 31.0, Anion Gap 7, BUN 30 H, Creatinine 1.02, Estim Creat Clear Calc 46.18, Est GFR (MDRD) Af Amer 69, Est GFR (MDRD) Non-Af 57 L, BUN/Creatinine Ratio 29.4 H, Glucose 108 H, Calcium 8.0 L 10/06/21 07:35: PT 13.4, INR 1.1, APTT 24.1, Fibrinogen 412 10/07/21 04:46: WBC 5.4, RBC 3.51 L, Hgb 11.0 L, Hct 33.7 L, MCV 96.0, MCH 31.3, MCHC 32.6, RDW Std Deviation 54.8 H, RDW Coeff of Krissy 15.9 H, Plt Count 42 L*, MPV 10.1, Immature Gran % (Auto) 0.700, Neut % (Auto) 78.2 H, Lymph % (Auto) 14.6 L, [place] % (Auto) 5.0, Eos % (Auto) 1.3, Baso % (Auto) 0.2, Absolute Neuts (auto) 4.2, Absolute Lymphs (auto) 0.79 L, Nucleated RBC % 0, Differential Co mment SCANNED, Diff Path Review March, Platelet Estimate MKD 10/07/21 04:46: Sodium 142, Potassium 3.1 L, Chloride 105, Carbon Dioxide 29.0, Anion Gap 8, BUN 31 H, Creatinine 0.86, Estim Creat Clear Calc 54.77, Est GFR (MDRD) Af Amer 84, Est GFR (MDRD) Non-Af 69, BUN/Creatinine Ratio 36.0 H, Glucose 165 H, Calcium 7.9 L Micro: Microbiology 10/05/21 08:25 Urine Catheter - Henson Urine Culture - Preliminary Culture exhibits no growth. 10/05/21 04:10 Sputum, Tracheal Aspirate Gram Stain - Final 10/05/21 04:10 Sputum, Tracheal Aspirate Respiratory Culture - Preliminary Appears to be normal respiratory christel. Further studies to follow. 10/05/21 09:25 Mucosa - Nasopharyngeal Respiratory Panel (PCR) - Final 10/05/21 03:45 Urine Catheter - Henson Legionella Antigen - Final 10/05/21 03:45 Urine Catheter - Henson Streptococcus pneumoniae Antigen (M - Final Radiography Diagnostic Testing: Radiology Impression Echocardiogram 10/05/21 20:16 Interpretation Summary The estimated ejection fraction is 60 %. No evidence for diastolic dysfunction. Ordering Physician: Yuri Cruz Referring Physician: Maty Pineda Performed By: Kate Moreno, RDRENEE Abdomen Ultrasound 10/06/21 05:55 IMPRESSION: Cirrhosis. Ascites. Electronically Signed: Diana Charles MD at 11:59 EST Tel , Service support , Chest X-Ray 10/06/21 05:55 IMPRESSION: Low-lying ET tube at the cassie, recommend retraction by roughly 4 cm. Remainder as above with left lower lobe airspace disease and effusion Electronically Signed: Red Cardenas DO at 0:36 EST Tel , Service support , Physical Exam Const no apparent distress General Appearance: intubated and patient mechanically ventilated Nutritional Appearance: obese HEENT normocephalic and head/scalp atraumatic Mouth: endotracheal tube in place and OG tube in place Eyes PERRL, EOMs intact bilaterally and conjunctivae normal Neck supple General: trachea midline and CVC in place Chest inspection of chest normal Resp Auscultation: diminished lung sounds Cardio regular rate and regular rhythm GI normal to inspection, nondistended, normoactive bowel sounds Extremity Extremity Narrative: Lymphedema of upper extremities noted as well. General Extremity: edema bilateral lower extremity Skin Skin Narrative: Bilateral lower extremity erythema Neuro Neuro Narrative: Alert and following commands appropriately. Psych Mood & Affect: anxious Charges/Coding Procedures Hospitalists Procedures: [id number] Critial Care 1st Hr
--- NOTE | 2021-10-07 07:08 | NURSING ---
0650: Geno RT with this RN at bedside, Patient extubated. Tolerated well, placed on 2L NC.
--- NOTE | 2021-10-07 09:34 | PN.HOSP_ITS ---
Subjective Subjective Patient was able to be extubated this morning. She is alert and oriented and able to communicate well. She states she has a history of known primary biliary cirrhosis and sounds as if it has progressed to the point where she has had complications related to her liver cirrhosis. She reports that she has had esophageal varices banding done in November and June 2021 for GI bleeds. She has been followed at [facility]. She recently moved to the [facility] from [place] and is currently living with her grandson and daughter. Per discussion with nursing the daughter states her health has declined and the patient does acknowledge this fact. She states that is probably been in the last 18 months that she is really noticed a decline in her health. She was smoking 3 cigarettes prior to admission a day but cut back significantly from previous. We did discuss CODE STATUS and she states she will need to discuss things further with her daughter and we we will leave things as is at this time. She is interested in talking to palliative care with regard to this available options for her so a consult was placed. She does indicate that she is interested in getting back home as soon as possible but is willing to potentially agree to go to rehab temporarily. Objective Data Objective Data Vital Signs: Vital Signs Temp Pulse Resp BP Pulse Ox 98.6 F 63 22 H 104/65 98 10/07/21 04:00 10/07/21 07:00 10/07/21 07:00 10/07/21 07:00 10/07/21 07:33 Oxygen Flow Rate (L/min) 2 Oxygen Delivery Method Nasal Cannula Weight: 87.1 kg Body Mass Index (BMI) 30.7 Intake & Output: Intake and Output for Last 24 Hours 10/05/21 10/06/21 10/07/21 23:59 23:59 23:59 Intake Total 606.01 / 808.61 1972.87 / 2088.37 889.96 / 889.96 Output Total 350 / 400 350 / 500 300 / 300 Balance 256.01 / 408.61 1622.87 / 1588.37 589.96 / 589.96 Lab / Micro Data Result Diagrams: 10/07/21 04:46 10/07/21 04:46 Labs: Laboratory Results - last 24 hr 10/06/21 07:35: PT 13.4, INR 1.1, APTT 24.1, Fibrinogen 412 10/07/21 04:46: WBC 5.4, RBC 3.51 L, Hgb 11.0 L, Hct 33.7 L, MCV 96.0, MCH 31.3, MCHC 32.6, RDW Std Deviation 54.8 H, RDW Coeff of Krissy 15.9 H, Plt Count 42 L*, MPV 10.1, Immature Gran % (Auto) 0.700, Neut % (Auto) 78.2 H, Lymph % (Auto) 14.6 L, [place] % (Auto) 5.0, Eos % (Auto) 1.3, Baso % (Auto) 0.2, Absolute Neuts (auto) 4.2, Absolute Lymphs (auto) 0.79 L, Nucleated RBC % 0, Differential Comment SCANNED, Diff Path Review March, Platelet Estimate MKD 10/07/21 04:46: Sodium 142, Potassium 3.1 L, Chloride 105, Carbon Dioxide 29.0, Anion Gap 8, BUN 31 H, Creatinine 0.86, Estim Creat Clear Calc 54.77, Est GFR (MDRD) Af Amer 84, Est GFR (MDRD) Non-Af 69, BUN/Creatinine Ratio 36.0 H, Glucose 165 H, Calcium 7.9 L Micro: Microbiology 10/05/21 04:10 Sputum, Tracheal Aspirate Gram Stain - Final 10/05/21 04:10 Sputum, Tracheal Aspirate Respiratory Culture - Final Mixed normal respiratory christel. No Streptococcus pneumoniae, beta-hemolytic Streptococcus or Staphylococcus aureus isolated. 10/05/21 08:25 Urine Catheter - Henson Urine Culture - Final Culture exhibits no growth. 10/05/21 04:30 Blood Culture (Wb) - Line Draw Blood Culture - Preliminary No growth in 48 hours. 10/05/21 04:00 Blood Culture (Wb) - Line Draw Blood Culture - Preliminary No growth in 48 hours. 10/05/21 09:25 Mucosa - Nasopharyngeal Respiratory Panel (PCR) - Final 10/05/21 03:45 Urine Catheter - Henson Legionella Antigen - Final 10/05/21 03:45 Urine Catheter - Henson Streptococcus pneumoniae Antigen (M - Final Radiography Diagnostic Testing: Radiology Impression Echocardiogram 10/05/21 20:16 Interpretation Summary The estimated ejection fraction is 60 %. No evidence for diastolic dysfunction. Ordering Physician: Yuri Cruz Referring Physician: Maty Pineda Performed By: Kate Moreno RDCS Abdomen Ultrasound 10/06/21 05:55 IMPRESSION: Cirrhosis. Ascites. Electronically Signed: Diana Charles MD at 11:59 EST Tel , Service support , Chest X-Ray 10/06/21 05:55 IMPRESSION: Low-lying ET tube at the cassie, recommend retraction by roughly 4 cm. Remainder as above with left lower lobe airspace disease and effusion Electronically Signed: Red Cardenas DO at 0:36 EST Tel , Service support , Physical Exam Const alert, oriented x3 and no apparent distress Constitutional Narrative: Obese older white female sitting up in bed extubated, alert and oriented x3, communicates well, mildly tachypneic and weak cough noted. Exam Limitations: no limitations Nutritional Appearance: obese HEENT head/scalp atraumatic and moist oral mucous membranes HEENT Narrative: Edentulous, Mallampati 2, no thrush Head and Scalp: normocephalic Resp normal respiratory effort, no retractions and no use of accessory muscles Resp Narrative: Few scattered rhonchi, moist rhonchorous sounding cough, diffusely diminished, tachypnea with conversational dyspnea Auscultation: rhonchi; Negative for crackles, rales or wheezes Cardio regular rate, regular rhythm, S1 normal heart sound, S2 normal heart sound, no murmurs, no rub, no gallops, no clicks and no JVD GI normal to inspection, nondistended, normoactive bowel sounds, soft to palpation, non-tender and non-distended Extremity Extremity Narrative: Bilateral lower extremity edema, some upper extremity edema most notably in hands bilaterally, no cyanosis or clubbing Peripheral Pulses: Yes pulses 2+ throughout Skin no wounds, no jaundice, no petechiae and no mottling Skin Narrative: Erythema bilateral lower extremities Neuro oriented x3, moves all extremities and no focal motor deficits Neuro Narrative: Follows commands Sensorium / Orientation: awake and alert Psych affect normal Assessment & Plan Assessment/Plan (1) Acute and chronic respiratory failure with hypoxia: (2) Acute anemia: (3) Thrombocytopenia: PLAN: Acute hypoxic respiratory failure -Etiology is currently unclear although suspect related to decompensated liver cirrhosis and COPD/pneumonia -Continue empiric antibiotics as cultures are still pending -Sputum culture shows mixed normal respiratory christel indicative of aspiration -Will narrow to Unasyn and complete 7-day total course--> could transition to oral if patient passes swallow -Speech therapy for swallow -Extubated to 2 L nasal cannula with sats 98-100% -Echo does not show any signs of heart failure with an EF of 60% and normal diastolic function -Lasix IV push x1 dose -Covid negative -Viral PCR negative -Urine culture negative -Blood cultures are negative -Legionella and strep pneumo antigen negative -Bilateral lower extremity Dopplers are pending -Continue GI prophylaxis Mild acute anemia-normocytic -Suspect related to acute hospitalization -No signs of acute blood loss -Continue to monitor Thrombocytopenia -Platelet count is 54,000 today -Coags and fibrinogen assessed to rule out chronic DIC -Peripheral smear pending -Liver ultrasound performed and shows cirrhosis -Unfortunately the spleen was not observed although I suspect with cirrhosis she likely has splenomegaly causing her thrombocytopenia Primary biliary cirrhosis -Patient reporting that Lasix does not work for her -We will try to see if we can get her to take some IV Bumex -Restart Aldactone at 25 mg twice daily although we are confirming dosage with her pharmacy -Likely the etiology for her edema -INR is 1.1 -Patient has been seen at [facility] for this previously and undergone esophageal varices banding twice in the last 12 months -Palliative care has been consulted History of esophageal varices -Status post banding 11/22/2020 and 06/22/2021 -No current signs of GI bleed -Continue to monitor Hypothyroidism -Continue home levothyroxine once dosing is verified GERD -Continue home PPI COPD -Continue aerosols as ordered -Patient was smoking prior to admission Obesity -BMI 30.8 -Complicates overall treatment, prognosis, outcomes DVT prophylaxis -SCDs with thrombocytopenia CODE STATUS -Full code --> discussed this extensively with the patient this morning--> she would like to confer with her daughter before any further decisions has been made we will leave CODE STATUS is full at this time -She is agreeable to talk to palliative care she states that she is interested in getting back home to her grandson's house and it does not sound as if she is ready for hospice care. -Home medications are being confirmed with her pharmacy Charges/Coding Visit Charges Inpatient E&M: 01046 Subs Hosp L2
[2021-10-07] MEDS: Potassium Chloride Oral Soln 20 MEQ/15 ML UDC 40 MEQ NG (09:35)
[2021-10-07] MEDS: CHLORHEXIDINE GLUC 2% CLOTH 1 EACH TOWELETTE TOPICAL (09:38)
[2021-10-07] MEDS: Bumetanide 1 MG/4 ML Vial 4 MG IV (10:27)
[2021-10-07] MEDS: Spironolactone 25 MG Tablet PO ×2 (10:32→21:33)
[2021-10-07] MEDS: Albuterol 2.5 MG/3 ML VIAL.NEB. INHALATION (10:57)
[2021-10-07] MEDS: Ipratropium/Albuterol Sulfate 3 ML AMPUL.NEB INHALATION ×2 (13:12→19:28)
[2021-10-07] MEDS: Acetaminophen 325 MG Tablet 650 MG PO ×2 (14:50→19:38)
--- NOTE | 2021-10-07 16:17 | NURSING ---
Patient's daughter is at the bedside. Discussed patient's condition including COPD, CHF, and liver cirrhosis and that palliative care was consulted. Discussed code status and the difference between full code, DNR CCA with and without intubation and DNRCC. After a very lengthy conversation the patient and her daughter decided to change her code status to DNRCCA DNI. Dr. Moss notified of the patient's wishes.
[2021-10-07] MEDS: Dicyclomine 10 MG Capsule PO (17:46)
[2021-10-07 19:55] LABS: Hepatitis C Antibody Non-Reactive (Nonreactive)
[2021-10-07] MEDS: Ursodiol 250 MG Tablet 500 MG PO (21:33)
[2021-10-08] VITALS (15 sets, daily range): BP systolic 107–130; BP diastolic 61–97; PULSE 72–89; RESP 18–37; TEMP 36.6–36.9; O2SAT 88–100
[2021-10-08] MEDS: Acetaminophen 325 MG Tablet 650 MG PO ×4 (02:58→23:19)
[2021-10-08 04:21] LABS: Absolute Lymphocyte Count 1.14 X10^3/uL (0.83-4.51); Absolute Neutrophil Count 3.6 X10^3/uL (2.0-7.7); Basophil# 0.03 X10^3/uL; Basophil% 0.5 % (0-1); Eosinophil# 0.11 X10^3/uL; Hematocrit 33.7 % (37-47); Hemoglobin 10.6 g/dL (12.0-15.0); Lymphocyte # 1.14 X10^3/ul (0.83-4.51); Lymphocyte % 20.7 % (19-41); Mean Corp Hgb Conc 31.5 g/dL (32-36); Mean Corpuscular Hgb 30.7 pg (27.0-32.0); Mean Corpuscular Volume 97.7 fL (81-99); Mean Platelet Vol. 10.1 fl (6.2-12.0); Monocyte# 0.57 X10^3/uL; Monocyte% 10.4 % (0-10); NRBC Flagged by Analyzer 0 % (0-5); Neutrophil % 65.5 % (47-70); POSITIVE COUNT YES; Platelet Count 63 K/mm3 (150-450); RBC Distribution Width CV 15.8 % (11.6-14.6); RBC Distribution Width SD 55.2 fl (35.1-43.9); Red Blood Count 3.45 M/mm3 (4.2-5.4); White Blood Count 5.5 K/mm3 (4.4-11.0)
[2021-10-08 04:36] LABS: Anion Gap 6 (5-15); BUN 35 mg/dL (7-18); BUN/Creat Ratio 39.8 RATIO (10-20); Chloride 103 mmol/L (98-107); Creatinine, Serum 0.88 mg/dL (0.55-1.02); EST Glomerular Filtration Rate 68 mL/min (>60); Est Glom Filt Rate - Afr Amer 82 mL/min (>60); Estimated Creatinine Clearance 53.53 ml/min; Glucose 131 mg/dL (74-106); Potassium 3.6 mmol/L (3.5-5.1); Sodium Level 141 mmol/L (136-145)
[2021-10-08] MEDS: Ipratropium/Albuterol Sulfate 3 ML AMPUL.NEB INHALATION ×3 (07:02→19:15)
[2021-10-08] MEDS: Dicyclomine 10 MG Capsule PO ×3 (08:14→17:53)
[2021-10-08] MEDS: 0.9% Saline Lock 10 ML Syringe IV ×2 (09:48→17:53)
[2021-10-08] MEDS: Ursodiol 250 MG Tablet 500 MG PO ×2 (09:49→19:35)
[2021-10-08] MEDS: Spironolactone 25 MG Tablet PO ×2 (09:49→19:35)
[2021-10-08] MEDS: Pantoprazole Sodium 40 MG Tablet PO (09:49)
[2021-10-08] MEDS: Metoprolol Tartrate 25 MG Tablet PO (09:53)
--- NOTE | 2021-10-08 10:05 | PN.CC_ITS ---
Assessment & Plan Assessment/Plan (1) Acute and chronic respiratory failure with hypoxia: PLAN: RECOMMENDATIONS: 1. Encourage incentive spirometer and wean oxygen as tolerated 2. Okay to leave the intensive care unit from my perspective 3. Await results of palliative care consult 4. Continue empiric antimicrobials to complete 7-day treatment course. 5. Continue to hold pharmacologic DVT prophylaxis due to thrombocytopenia. 6. Hemodynamically stable on minimal nasal cannula oxygen. Will sign off from a critical care perspective IMPRESSIONS: 1. Acute hypoxemic respiratory failure The exact precipitating etiology for the patient's acute respiratory decompensation is not clear. However, possible etiologies could include pneumonia, decompensated heart failure or sepsis with an inability to compensate for increased metabolic demand. At the present time, the patient's ventilator requirements are minimal. With supportive measures including antimicrobials, the patient was able to be extubated on October 07. Her echocardiogram revealed intact systolic function. Patient has done well since extubation. Encourage incentive spirometer. Therapy has been consulted. Patient has been responding to diuretics. 2. Thrombocytopenia Likely secondary to underlying cirrhosis identified on ultrasound. This is a chronic medical condition for the patient. Continue to monitor daily. No indication for transfusion of platelets. 3. History of biliary cirrhosis/hypertension/hypothyroidism/GERD/COPD Complicates care, management, recovery and prognosis. Continue home medications as indicated. Await results of palliative care evaluation Subjective Subjective Patient did okay overnight. Patient continues to report some foot pain, but overall feels improved compared to previous. Patient does state that she has some dry mouth and feels thirsty. Patient states that she wishes to remain aggressive despite my liver problems. Objective Data Objective Data Vital Signs: Vital Signs Temp Pulse Resp BP Pulse Ox 36.6 C 77 23 H 119/63 98 10/08/21 08:00 10/08/21 09:53 10/08/21 08:00 10/08/21 09:53 10/08/21 08:00 Oxygen Flow Rate (L/min) 2 Oxygen Delivery Method Room Air Weight: 85.6 kg Body Mass Index (BMI) 30.7 Intake & Output: Intake and Output for Last 24 Hours 10/06/21 10/07/21 10/08/21 23:59 23:59 23:59 Intake Total 1972.87 / 2088.37 2963.96 / 2963.96 496.75 / 496.75 Output Total 350 / 500 3425 / 3425 425 / 425 Balance 1622.87 / 1588.37 -461.04 / -461.04 71.75 / 71.75 Lab / Micro Data Result Diagrams: 10/08/21 04:02 10/08/21 04:02 Labs: Laboratory Results - last 24 hr 10/07/21 17:50: Hepatitis C Antibody Non-Reactive 10/08/21 04:02: WBC 5.5, RBC 3.45 L, Hgb 10.6 L, Hct 33.7 L, MCV 97.7, MCH 30.7, MCHC 31.5 L, RDW Std Deviation 55.2 H, RDW Coeff of Krissy 15.8 H, Plt Count 63 L, MPV 10.1, Immature Gran % (Auto) 0.900, Neut % (Auto) 65.5, Lymph % (Auto) 20.7, [place] % (Auto) 10.4 H, Eos % (Auto) 2.0, Baso % (Auto) 0.5, Absolute Neuts (auto) 3.6, Absolute Lymphs (auto) 1.14, Nucleated RBC % 0 10/08/21 04:02: Sodium 141, Potassium 3.6, Chloride 103, Carbon Dioxide 32.0, Anion Gap 6, BUN 35 H, Creatinine 0.88, Estim Creat Clear Calc 53.53, Est GFR (MDRD) Af Amer 82, Est GFR (MDRD) Non-Af 68, BUN/Creatinine Ratio 39.8 H, Glucose 131 H, Calcium 8.0 L Micro: Microbiology 10/05/21 04:10 Sputum, Tracheal Aspirate Gram Stain - Final 10/05/21 04:10 Sputum, Tracheal Aspirate Respiratory Culture - Final Mixed normal respiratory christel. No Streptococcus pneumoniae, beta-hemolytic Streptococcus or Staphylococcus aureus isolated. 10/05/21 08:25 Urine Catheter - Henson Urine Culture - Final Culture exhibits no growth. 10/05/21 04:30 Blood Culture (Wb) - Line Draw Blood Culture - Preliminary No growth in 48 hours. 10/05/21 04:00 Blood Culture (Wb) - Line Draw Blood Culture - Preliminary No growth in 48 hours. 10/05/21 09:25 Mucosa - Nasopharyngeal Respiratory Panel (PCR) - Final 10/05/21 03:45 Urine Catheter - Henson Legionella Antigen - Final 10/05/21 03:45 Urine Catheter - Henson Streptococcus pneumoniae Antigen (M - Final Physical Exam Const alert, oriented x3 and no apparent distress General Appearance: cooperative and comfortable Nutritional Appearance: obese HEENT normocephalic and head/scalp atraumatic Mouth: No endotracheal tube in place and No OG tube in place Eyes PERRL, EOMs intact bilaterally and conjunctivae normal Neck supple General: trachea midline and CVC in place Chest inspection of chest normal Resp Auscultation: rales bilateral base and diminished lung sounds; Negative for rhonchi or wheezes Cardio regular rate, regular rhythm, no murmurs, no rub and no gallops GI normal to inspection, nondistended, normoactive bowel sounds Extremity Extremity Narrative: Lymphedema of upper extremities noted as well. General Extremity: edema bilateral lower extremity Skin Skin Narrative: Bilateral lower extremity erythema Neuro Neuro Narrative: Alert and following commands appropriately. Psych Mood & Affect: anxious Charges/Coding Visit Charges Inpatient E&M: 59846 Subs Hosp L2
--- NOTE | 2021-10-08 10:21 | CASEMGMT ---
Social Work SW participated in ICU rounds this morning. SW spoke w/pt after rounds in regard to discharge plan. We spoke about pt going home vs going to a nursing home facility. Pt states is agreeable to go to a alf, states her legs are weak. Pt has had home health in the past, has not been to a rehab facility. Pt states her daughter and grandson are wanting pt to return home. Pt states she just moved up here from [place] last week. Pt states she needs a hospital bed, the house isn't quite set up for her yet. SW explained can speak w/daughter, but it is ultimately pt's choice. Pt states she and her daughter are talking to palliative care at 11am. Pt also is to have PT/OT today. SW explained can speak w/daughter later after her palliative meeting. SW did provide to pt a list of nursing home facilities in pt's preferred geographic area, that takes pt's insurance, complete with quality and resource use data. There are two facilities in [place], pt asked how far they are from where she lives. SW looked on [employer] Maps, [facility] is 1.1 miles from their home, and [facility] is 2.4 miles from their home. SW will follow up w/pt and daughter after the palliative meeting. NOHEMY Valadez
--- NOTE | 2021-10-08 12:36 | CASEMGMT ---
Addendum entered by Sandhya Angel 10/08/21 16:25: PT/OT evaluations faxed to [facility]. NOHEMY Valadez Addendum entered by Sandhya Angel 10/08/21 13:19: [facility] can take pt whenever pt is ready. KRIS let pt and daughter know. NOHEMY Valadez Addendum entered by Sandhya Angel 10/08/21 13:13: SW spoke w/pt, she is in agreement w/referral to [facility]. SW will wait to hear back from [facility] regarding referral. NOHEMY Valadez Original Note: Social Work Pt met w/palliative, and as per Constance w/palliative pt did sign on with palliative care. Daughter participated via telephone. SW spoke w/pt after the meeting, we spoke again about SNF. Pt is still in agreement with going, still expressing concern that her daughter will not be agreeable. SW did let her know the distances of the two places from her, [facility] is 1.[address] miles away and [facility] is 2.3 miles away. Pt asked about visitation, if both daughter and grandson can visit. SW explained will find out. Pt does want SW to call daughter. SW called [facility], both grandson and daughter can visit. SW called [facility], message left. SW called daughter Aneta, spoke w/her about pt going to SNF for short term, for rehab. Daughter is agreeable to this. Daughter understands that this is what pt needs at this time. She did mention that she is getting paid to care for her mom and that her mom is her only client. SW acknowledged the financial difficulty of the situation, and pointed out however if pt goes home and is not able to manage, will end up back in the hospital. Daughter states understanding. SW did also review w/pt's daughter the Medicare coverage for pt at SNF. Daughter would like referral sent to the closest facility to their home, SW explained that this would be [facility]. SW went back to pt's room to let her know what her daughter said and that her daughter is in agreement with assisted placement at this time. Pt states she is having trouble breathing, SW got nurse for pt. SW will follow up w/pt later today. SW did fax referral to [facility] for this pt, can sent to [facility] also if needed. SW will continue to follow. PT/OT are also still pending. NOHEMY Valadez
[2021-10-08] MEDS: Bumetanide 1 MG/4 ML Vial 4 MG IV (12:54)
--- NOTE | 2021-10-08 14:23 | PN.HOSP_ITS ---
Subjective Subjective Patient states she is feeling better overall. Her respiratory status has improved. She is on room air. Still some intermittent tachypnea. Indicates that she would like to go to skilled facility so she can get home and ambulate again. She is not ready to throw in the towel. She is however receptive to talking to palliative care. Objective Data Objective Data Vital Signs: Vital Signs Temp Pulse Resp BP Pulse Ox 98.2 F 80 28 H 130/85 H 93 10/08/21 13:36 10/08/21 13:36 10/08/21 13:36 10/08/21 13:36 10/08/21 13:36 Oxygen Flow Rate (L/min) 1 Oxygen Delivery Method Nasal Cannula Weight: 85.6 kg Body Mass Index (BMI) 30.7 Intake & Output: Intake and Output for Last 24 Hours 10/06/21 10/07/21 10/08/21 23:59 23:59 23:59 Intake Total 1972.87 / 2088.37 2963.96 / 2963.96 958.75 / 958.75 Output Total 350 / 500 3425 / 3425 2100 / 2100 Balance 1622.87 / 1588.37 -461.04 / -461.04 -1141.25 / -1141.25 Lab / Micro Data Result Diagrams: 10/08/21 04:02 10/08/21 04:02 Labs: Laboratory Results - last 24 hr 10/07/21 17:50: Hepatitis C Antibody Non-Reactive 10/08/21 04:02: WBC 5.5, RBC 3.45 L, Hgb 10.6 L, Hct 33.7 L, MCV 97.7, MCH 30.7, MCHC 31.5 L, RDW Std Deviation 55.2 H, RDW Coeff of Krissy 15.8 H, Plt Count 63 L, MPV 10.1, Immature Gran % (Auto) 0.900, Neut % (Auto) 65.5, Lymph % (Auto) 20.7, Peach % (Auto) 10.4 H, Eos % (Auto) 2.0, Baso % (Auto) 0.5, Absolute Neuts (auto) 3.6, Absolute Lymphs (auto) 1.14, Nucleated RBC % 0 10/08/21 04:02: Sodium 141, Potassium 3.6, Chloride 103, Carbon Dioxide 32.0, Anion Gap 6, BUN 35 H, Creatinine 0.88, Estim Creat Clear Calc 53.53, Est GFR (MDRD) Af Amer 82, Est GFR (MDRD) Non-Af 68, BUN/Creatinine Ratio 39.8 H, Glucose 131 H, Calcium 8.0 L Micro: Microbiology 10/05/21 04:10 Sputum, Tracheal Aspirate Gram Stain - Final 10/05/21 04:10 Sputum, Tracheal Aspirate Respiratory Culture - Final Mixed normal respiratory christel. No Streptococcus pneumoniae, beta-hemolytic Streptococcus or Staphylococcus aureus isolated. 10/05/21 08:25 Urine Catheter - Henson Urine Culture - Final Culture exhibits no growth. 10/05/21 04:30 Blood Culture (Wb) - Line Draw Blood Culture - Preliminary No growth in 48 hours. 10/05/21 04:00 Blood Culture (Wb) - Line Draw Blood Culture - Preliminary No growth in 48 hours. 10/05/21 09:25 Mucosa - Nasopharyngeal Respiratory Panel (PCR) - Final 10/05/21 03:45 Urine Catheter - Henson Legionella Antigen - Final 10/05/21 03:45 Urine Catheter - Henosn Streptococcus pneumoniae Antigen (M - Final Physical Exam Const alert, oriented x3 and no apparent distress Constitutional Narrative: Obese older white female sitting up in bed appears well, nontoxic, alert and oriented x3, less tachypnea and no respiratory distress today Exam Limitations: no limitations Nutritional Appearance: obese HEENT head/scalp atraumatic and moist oral mucous membranes Head and Scalp: normocephalic Resp normal respiratory effort, no retractions and no use of accessory muscles Resp Narrative: Few rhonchi scattered, improved in the last 24 hours, less rhonchorous cough, diffusely diminished breath sounds Auscultation: rhonchi; Negative for crackles, rales or wheezes Cardio regular rate, regular rhythm, S1 normal heart sound, S2 normal heart sound, no murmurs, no rub, no gallops, no clicks and no JVD GI normal to inspection, nondistended, normoactive bowel sounds, soft to palpation, non-tender and non-distended Extremity Extremity Narrative: Bilateral lower extremity edema, some upper extremity edema most notably in hands bilaterally, no cyanosis or clubbing Peripheral Pulses: Yes pulses 2+ throughout Skin no wounds, no jaundice, no petechiae and no mottling Skin Narrative: Erythema bilateral lower extremities Neuro oriented x3, moves all extremities and no focal motor deficits Neuro Narrative: Follows commands Sensorium / Orientation: awake and alert Psych affect normal Psych Narrative: Very pleasant Assessment & Plan Assessment/Plan (1) Acute and chronic respiratory failure with hypoxia: (2) Acute anemia: (3) Thrombocytopenia: PLAN: Acute hypoxic respiratory failure secondary to decompensated liver cirrhosis/COPD/aspiration pneumonia -Continue empiric antibiotics as cultures are still pending -Sputum culture shows mixed normal respiratory christel indicative of aspiration -Will narrow to Unasyn and complete 7-day total course--> date 4 of 7 -Patient is on 1 to 2 L with an SPO2 of 93 to 100% -Echo does not show any signs of heart failure with an EF of 60% and normal diastolic function -Repeat Bumex dose 4 mg x 1 -Patient did diurese well yesterday with Bumex -Covid negative -Viral PCR negative -Urine culture negative -Blood cultures are negative -Legionella and strep pneumo antigen negative -Bilateral lower extremity Dopplers are pending -Continue GI prophylaxis Mild acute anemia-normocytic -Suspect related to acute hospitalization -No signs of acute blood loss -Continue to monitor Thrombocytopenia -Platelet count is 63,000 today -Coags and fibrinogen assessed to rule out chronic DIC and negative for this -Peripheral smear pending -Liver ultrasound performed and shows cirrhosis -Unfortunately the spleen was not observed although I suspect with cirrhosis she likely has splenomegaly causing her thrombocytopenia Primary biliary cirrhosis -Repeat Bumex dose again today as patient diuresed well -Patient states that Lasix has not worked well in the past but I suspect there may have been some GI edema that may have limited absorption and hopefully once we decrease her volume overload she will have improved diuresis with oral diuretics -Continue fluid restriction of 1500 cc/day--> will likely discharge with 800 cc restriction daily -Continue Aldactone at 25 mg twice daily--> home doses 200 mg twice daily -Titrate up slowly -Likely the etiology for her edema -INR is 1.1 -Patient has been seen at [facility] for this previously and undergone esophageal varices banding twice in the last 12 months -Palliative care has been consulted and will see the patient today History of esophageal varices -Status post banding 11/22/2020 and 06/22/2021 -No current signs of GI bleed -Continue to monitor Hypothyroidism -Continue home levothyroxine once dosing is verified GERD -Continue home PPI COPD -Continue aerosols as ordered -Patient was smoking prior to admission Obesity -BMI 30.8 -Complicates overall treatment, prognosis, outcomes DVT prophylaxis -SCDs with thrombocytopenia CODE STATUS -Full code --> discussed this extensively with the patient this morning--> she would like to confer with her daughter before any further decisions has been made we will leave CODE STATUS is full at this time -She is agreeable to talk to palliative care she states that she is interested in getting back home to her grandson's house and it does not sound as if she is ready for hospice care. -Would recommend discharge with continued palliative care to skilled facility--> referral to [facility] has been made Charges/Coding Visit Charges Inpatient E&M: 24769 Subs Hosp L2
--- NOTE | 2021-10-08 15:44 | CON.PCM.PA_ITS ---
Assessment & Plan Assessment/Plan (1) Shortness of breath: (2) Debility: (3) Acute and chronic respiratory failure with hypoxia: (4) Acute anemia: (5) Thrombocytopenia: PLAN: 71-year-old female with multiple comorbidities, CHF and COPD, extubated 10/07, seen today for palliative consultation for symptom management of shortness of breath, anxiety, debility and overall supportive care. 1. Shortness of breath/acute on chronic hypoxemic respiratory failure: Multifactorial. Slowly improving, she has been weaned to 1 to 2 L per nasal cannula. She is still fluid positive for the admission. She is on Aldactone. Would treat underlying conditions, no indication for opioids for the treatment of shortness of breath at this time. Supportive care through palliative. 2. Debility and weakness: She has not been very mobile for quite some time. Daughter is caregiver. She is going to go to a skilled facility for further rehabilitation and strengthening. Hopefully, she can return home with her grandson and daughter when she is a little stronger. 3. Anemia/thrombocytopenia/history of bipolar/CHF/bipolar/COPD: Complicates overall care, management, recovery, and prognosis. Defer management to attending/specialists. Should establish with GI/medical center manager. Thank you for the opportunity to participate in this patient's care, please do not hesitate to contact [facility] with any further questions or concerns. Palliative direct line is [phone]. Patient has signed consent forms to enroll in palliative services. We will f/u in the half-way. Greater than 50% of F2F visit dedicated to education and counseling of palliative care services, medications, comorbid conditions and potential assistance with management, and plan of care moving forward. Start time: 1544 End time: 1630 HPI Consult Data Date of Consult: 10/08/21 HPI Narrative HPI Narrative: AVIVA STAPLETON, is a 71 F who presented [facility] ICU 10/05/2021 from [facility] in [place] status post intubation for progressive shortness of breath and probable CHF exacerbation with fluid overload. Her Covid 19 rapid antigen was negative and EKG showed a normal sinus rhythm. Troponins were normal, however she continued to deteriorate so was intubated. CTA was negative for PE but showed bilateral small pleural effusions, left lateral and right with overlying atelectasis. Mild ascites and chronic mild compression deformity of T3, T6, and T7 with diffuse osteopenia and multilevel degenerative changes. Her liver function studies were abnormal. She did have some hypotension so was unable to be initially diuresed. Eventually, she was extubated 10/07 and is doing fairly well. Blood pressure is stable, respirations a little elevated at 28 but she is saturating 93% on 1 L of oxygen. Patient does have some wounds on her buttocks and lower extremities. She remains on antibiotics. Right upper quadrant abdominal ultrasound showed cirrhosis and ascites, status post cholecystectomy. Echocardiogram 10/06 showed an estimated EF of 60% and no evidence of diastolic dysfunction. Study was technically difficult as it was done when patient was intubated. Patient does have known cirrhosis and subsequent thrombocytopenia. Patient recently moved to this area with her daughter, Jessica to live with her son Cheko in [place]. She also has 2 other children, Mery and Yoshi who are estranged from the patient for the last several years. She also has not seen her other daughter, Makayla for the past couple of months. 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 Patient reportedly refusing care at times and sometimes will not allow her attends to be changed so lays in wet. Daughter also reports poor appetite and insomnia. DME in the home include shower chair, BSC, walker, wheelchair, medical alert button, lift chair, and nebulizer. Patient reports shortness of breath with minimal exertion. No chest pain. No dizziness or syncope. Denies N/V/D. Appetite is poor and she has early satiety. She is drinking some fluids. Chronic lower extremity edema, reports it is a little better than usual. Her legs are very painful and arms are tender as well. Abdomen is tender with palpation. She is distended. No cough or wheezing. No sputum production. Has a Henson catheter, draining clear yellow urine. [facility] Medical History Bipolar disorder Congestive heart failure (CHF) COPD (chronic obstructive pulmonary disease) Home Medications albuterol sulfate 1 INHALATION Q4H PRN 10/05/21 [History Last Taken Unknown] dicyclomine 10 mg TID 10/05/21 [History Last Taken Unknown] fluticasone propion-salmeterol [Advair Diskus] 1 INHALATION BID 10/05/21 [History Last Taken Unknown] methocarbamol 500 mg PO TID 10/05/21 [History Last Taken Unknown] metoprolol tartrate 25 mg PO DAILY 10/05/21 [History Last Taken Unknown] oxycodone 5 mg PO Q6H PRN 10/05/21 [History Last Taken Unknown] pantoprazole 40 mg PO DAILY 10/05/21 [History Last Taken Unknown] spironolactone 200 mg PO BID 10/05/21 [History Last Taken Unknown] ursodiol 600 mg PO Q12H 10/05/21 [History Last Taken Unknown] Allergy/AdvReac Type Severity Reaction Status Date / Time cyclobenzaprine Allergy Swelling Verified 10/05/21 04:45 doxycycline Allergy Hives Verified 10/05/21 04:45 Iodinated Contrast Media [CT] Allergy Swelling Verified 10/05/21 04:45 Sulfa (Sulfonamide Allergy Swelling Verified 10/05/21 04:45 Antibiotics) acetaminophen AdvReac Nausea Verified 10/05/21 04:45 [From Tylenol-Codeine #3] codeine AdvReac Nausea Verified 10/05/21 04:45 [From Tylenol-Codeine #3] erythromycin base AdvReac Upset Verified 10/05/21 04:45 Stomach metronidazole AdvReac Upset Verified 10/05/21 04:45 Stomach tetracycline AdvReac PT UNSURE Verified 10/05/21 04:45 OF REACTION Family History unable to obtain Social History Smoking Status: Unknown if ever smoked ROS ROS Narrative Review of systems otherwise negative from a constitutional, HEENT, respiratory, cardiovascular, GI, genitourinary, musculoskeletal, skin, neurologic, psychiatric and hematologic system unless stated above. Physical Exam Const alert, oriented x3 and no apparent distress General Appearance: cooperative HEENT normocephalic and head/scalp atraumatic Neck supple General: trachea midline Resp normal respiratory effort Resp Narrative: Conversational dyspnea Effort and Inspection: symmetric chest movement Auscultation: diminished lung sounds GI soft to palpation Auscultation: normoactive bowel sounds Palpation: tender Extremity Extremity Narrative: Legs with vascular changes, wrapped with Ralph bandages. Edematous General Extremity: edema; Negative for clubbing or cyanosis Skin Skin Narrative: She has a wound on her buttock, did not observe. Poor bed mobility. Multiple areas of bruising and wounds to the lower extremities Neuro CN's II-XII intact bilaterally and moves all extremities Psych mental status grossly normal Activity / Motor Behavior: appropriate eye contact Speech: pressured Mood & Affect: anxious Thought Content: No hallucination(s) Memory / Cognition: memory grossly intact Insight: fair
[2021-10-08] MEDS: Juven (unflavored) Packet 1 PACKET PO (17:52)
[2021-10-08] MEDS: MELATONIN 10 MG TABLET 5 MG PO (21:49)
[2021-10-09] VITALS (7 sets, daily range): BP systolic 112–125; BP diastolic 65–74; PULSE 74–78; RESP 18–30; TEMP 36.6; O2SAT 93–100
[2021-10-09 02:13] LABS: Absolute Lymphocyte Count 0.86 X10^3/uL (0.83-4.51); Absolute Neutrophil Count 2.3 X10^3/uL (2.0-7.7); Basophil# 0.02 X10^3/uL; Basophil% 0.5 % (0-1); Eosinophil# 0.16 X10^3/uL; Eosinophils% 4.2 % (0-5); Hematocrit 33.3 % (37-47); Hemoglobin 10.2 g/dL (12.0-15.0); Lymphocyte # 0.86 X10^3/ul (0.83-4.51); Lymphocyte % 22.5 % (19-41); Mean Corp Hgb Conc 30.6 g/dL (32-36); Mean Corpuscular Hgb 30.3 pg (27.0-32.0); Mean Corpuscular Volume 98.8 fL (81-99); Mean Platelet Vol. 9.9 fl (6.2-12.0); Monocyte# 0.51 X10^3/uL; Monocyte% 13.4 % (0-10); NRBC Flagged by Analyzer 0 % (0-5); Neutrophil # 2.25 X10^3/uL (2.7-7.7); Neutrophil % 58.9 % (47-70); POSITIVE COUNT YES; Platelet Count 69 K/mm3 (150-450); RBC Distribution Width CV 15.5 % (11.6-14.6); RBC Distribution Width SD 55.3 fl (35.1-43.9); Red Blood Count 3.37 M/mm3 (4.2-5.4); White Blood Count 3.8 K/mm3 (4.4-11.0)
[2021-10-09 02:24] LABS: Anion Gap 5 (5-15); BUN 33 mg/dL (7-18); BUN/Creat Ratio 43.6 RATIO (10-20); Calcium,Total 8.4 mg/dL (8.5-10.1); Chloride 104 mmol/L (98-107); Creatinine, Serum 0.76 mg/dL (0.55-1.02); EST Glomerular Filtration Rate 80 mL/min (>60); Est Glom Filt Rate - Afr Amer 97 mL/min (>60); Glucose 113 mg/dL (74-106); Potassium 3.2 mmol/L (3.5-5.1); Sodium Level 144 mmol/L (136-145)
[2021-10-09] MEDS: Dicyclomine 10 MG Capsule PO ×2 (05:06→13:21)
[2021-10-09] MEDS: Acetaminophen 325 MG Tablet 650 MG PO ×2 (05:07→14:23)
[2021-10-09] MEDS: Ipratropium/Albuterol Sulfate 3 ML AMPUL.NEB INHALATION (06:43)
[2021-10-09] MEDS: Pantoprazole Sodium 40 MG Tablet PO (08:03)
[2021-10-09] MEDS: Ursodiol 250 MG Tablet 500 MG PO (08:03)
[2021-10-09] MEDS: Metoprolol Tartrate 25 MG Tablet PO (08:03)
[2021-10-09] MEDS: Juven (unflavored) Packet 1 PACKET PO (08:04)
[2021-10-09] MEDS: Spironolactone 50 MG Tablet PO (08:07)
[2021-10-09] MEDS: Potassium Chloride Oral Tablet 20 MEQ 40 MEQ PO (08:08)
[2021-10-09] MEDS: Bumetanide 2 MG Tablet PO (08:08)
[2021-10-09 09:14] LABS: Pathologist Review Reviewed
[2021-10-09 09:33] LABS: Pathologist Review Reviewed
[2021-10-09] MEDS: proCHLORPERazine 10 MG/2 ML Vial 5 MG IV (09:33)
--- NOTE | 2021-10-09 11:34 | CASEMGMT ---
SW spoke w/physician, pt may be ready to go to the [facility] this afternoon. SW called [facility], spoke w/[facility], they can take pt today. COVID test ordered. Plan is for pt to go to [facility] later today. NOHEMY Valadez
[2021-10-09] MEDS: Polyethylene Glycol 3350 17 GM PACKET PO (13:22)
[2021-10-09 14:44] LABS: Probe Check PASS; Specimen Processing Control PASS
--- NOTE | 2021-10-09 14:52 | PCM.TXEXTCAR ---
Diet 10/07/21 10:27 Diet: Carbohydrate Controlled Food consistency:: Regular Liquid Consistency:: Regular/Thin Dietary Modifications:: No Added Salt Type of Dietary Supplement:: Is pt able to select menu?: No Fluid restriction:: 1500 mL Routine Orders/Code Status Suppository Frequency: Daily PRN O2 Liters per Minute: 1 and wean as able O2 Frequency: Continuous Keep PO Greater than or Equal to (%): 88 Routine Lab Work: CBC (2 days) and BMP (2 days) Code Status: DNRCC-A Wound(s) Left Buttock: Wound Type: Pressure Injury Dressing Change: Mepilex Right Buttock: Wound Type: Pressure Injury Dressing Change: Mepilex bilateral lower extremities: Wound Type: Abrasion bilateral upper extremities: Wound Type: Abrasion left dorsal foot: Wound Type: wound (known etiology) Dressing Change: Adaptic right medial lower leg: Wound Type: nearly healed stasis ulcer Dressing Change: Adaptic right posterior lower leg: Wound Type: nearly healed stasis ulcer Dressing Change: Adaptic Suggestions for Active Care Change Position every (hours): 2 Therapies Weight Bearing: Full weight bearing Physical Therapy: Eval and Treat Occupational Therapy: Eval and Treat Problem/Diagnosis (1) Shortness of breath: Status: Acute (2) Debility: Status: Acute (3) Acute and chronic respiratory failure with hypoxia: Status: Chronic (4) Acute anemia: Status: Acute (5) Thrombocytopenia: Status: Acute Allergies/Procedures Done in Hospital Allergies cyclobenzaprine Allergy (Verified 10/05/21 04:45) Swelling doxycycline Allergy (Verified 10/05/21 04:45) Hives Iodinated Contrast Media [CT] Allergy (Verified 10/05/21 04:45) Swelling Sulfa (Sulfonamide Antibiotics) Allergy (Verified 10/05/21 04:45) Swelling acetaminophen [From Tylenol-Codeine #3] Adverse Reaction (Verified 10/05/21 04:45) Nausea codeine [From Tylenol-Codeine #3] Adverse Reaction (Verified 10/05/21 04:45) Nausea erythromycin base Adverse Reaction (Verified 10/05/21 04:45) Upset Stomach metronidazole Adverse Reaction (Verified 10/05/21 04:45) Upset Stomach tetracycline Adverse Reaction (Verified 10/05/21 04:45) PT UNSURE OF REACTION Procedures: 2-D Echocardiogram and Intubation Type of Care/Length of Stay Estimated LOS: Convalescent Care Less Than 30 days Type of Care Needed: Skilled Rehab Potential: Fair Prognosis: Fair Additional Orders/Day of Discharge Day of Discharge: 10/09/21 Dietary and Speech Recommendations Dietitian Recommendations/Changes: continue carbohydrate controlled, no added salt diet w/ fluid restriction as indicated. Discharge Plan Admission Admit Date/Time: 10/05/21 02:51 Attending Provider: Marguerite Moss Primary Care Provider: Maty Pineda NP Consulting Providers: Arpan Franklin ; Karley Putnam ; Geremias Ortega ; Malina Hill ; Shireen Harman ; Gwen Winn ; Cathy Gold PAY PER CLICK STRATEGIST ; Petey Love ; Sunita Peguero PAY PER CLICK STRATEGIST Discharge Orders/Prescriptions Prescriptions: No Action methocarbamol 500 mg tablet 500 mg PO TID RF: 0 fluticasone propion-salmeterol [Advair Diskus] 250-50 mcg/dose blister with device 1 INHALATION BID RF: 0 albuterol sulfate 2.5 mg /3 mL (0.083 %) solution for nebulization 1 inhalation Q4H PRN (Reason: SOB) RF: 0 spironolactone 100 mg tablet 200 mg PO BID RF: 0 pantoprazole 40 mg tablet,delayed release (DR/EC) 40 mg PO DAILY RF: 0 ursodiol 300 mg capsule 600 mg PO Q12H RF: 0 dicyclomine 10 mg capsule 10 mg TID RF: 0 oxycodone 5 mg tablet 5 mg PO Q6H PRN (Reason: Pain) RF: 0 metoprolol tartrate 25 mg tablet 25 mg PO DAILY RF: 0 Referrals / Follow Up: Maty Pineda PAY PER CLICK STRATEGIST, PAY PER CLICK STRATEGIST-C [Primary Care Provider] -
--- NOTE | 2021-10-09 14:54 | PCM.DC.SUM ---
Providers Date of Admission: 10/05/21 Primary Care Physician: MARIO Guillen Consultations 10/05/21 05:14 Consult: Onc/Wound/wine specialist Routine Comment: Reason for Consult:: Stage III to Bilateral buttocks 10/05/21 05:15 Consult: Heating And Ventilating Drafter / Pulmonary Medicine Routine Consulting Provider: Arpan Franklin Reason for Consult: Intensive Care EMERGENT Consult: No MD Notified: Yes Date Notified: 10/05/21 Time Notified: 05:15 Method of Notification: Text 10/05/21 06:26 Consult: Heating And Ventilating Drafter / Pulmonary Medicine Routine Consulting Provider: [facility] [place] Reason for Consult: intubated on ventilator EMERGENT Consult: No MD Notified: Yes Date Notified: 10/04/21 Time Notified: 11:30 Method of Notification: Verbal Consult: Onc/Wound/wine specialist Routine Comment: Reason for Consult:: sacral decubitus, LLE macerated skin 10/07/21 09:31 Consult: Hospice / Palliative Care Routine Consulting Provider: [facility] Reason for Consult: Palliative care services EMERGENT Consult: No MD Notified: Yes Date Notified: 10/07/21 Time Notified: 09:31 Method of Notification: Page Reason For Visit: ACUTE HYPOXIC RESPIRATORY FAILURE ON VENTILATOR Diagnosis Discharge Diagnosis (1) Shortness of breath: Status: Deleted Code(s): R06.02 - Shortness of breath (2) Debility: Status: Acute Code(s): R53.81 - Other malaise (3) Thrombocytopenia: Status: Inactive Code(s): D69.6 - Thrombocytopenia, unspecified (4) Acute respiratory failure with hypoxia: Status: Acute Code(s): J96.01 - Acute respiratory failure with hypoxia Medications at Discharge Home Medications albuterol sulfate 1 INHALATION Q4H PRN 10/05/21 dicyclomine 10 mg TID 10/05/21 fluticasone propion-salmeterol [Advair Diskus] 1 INHALATION BID 10/05/21 methocarbamol 500 mg PO TID 10/05/21 oxycodone 5 mg PO Q6H PRN 10/05/21 pantoprazole 40 mg PO DAILY 10/05/21 ursodiol 600 mg PO Q12H 10/05/21 acetaminophen [Tylenol] 650 mg PO Q4H PRN PRN #0 tab 10/09/21 albuterol sulfate 2.5 mg INHALATION Q2H PRN PRN #0 ml 10/09/21 amoxicillin-pot clavulanate [Augmentin XR] 1 tab PO BID #4 tab 10/09/21 [id number] [Jamil (with collagen)] 1 packet PO BIDCM #0 ea 10/09/21 bumetanide 2 mg PO BIDLX #0 tab 10/09/21 ipratropium-albuterol 3 ml INHALATION Q6HWA.RT #0 ml 10/09/21 melatonin 5 mg PO QHS #0 tab 10/09/21 polyethylene glycol 3350 17 g PO DAILY #0 ea 10/09/21 spironolactone 50 mg PO BID #0 tab 10/09/21 Hospital Course Procedures 2-D Echocardiogram and Intubation Summary of Care Provided Minutes Spent on Discharge: 42 Hospital Course: Mrs. Avila is a 71-year-old white female who presented to outside hospital as a transfer on October 05, 2021. She initially presented there because of shortness of breath and lower extremity edema. She was intubated prior to transfer due to respiratory distress. Her blood gas at outside hospital showed a pH of 7.3 with a PCO2 of 74 and a PO2 of 89. A CT of her chest was performed and showed no evidence of pulmonary embolism and demonstrated small bilateral pleural effusions. A UA done there was positive for nitrates and leuk esterase along with 2+ urine bacteria. Covid antigen testing was negative. Upon arrival to the intensive care she was afebrile and hemodynamically stable. She had a mildly elevated white count and a thrombocytopenia upon a presentation. There is concerned that her presentation was due to acute congestive heart failure and therefore an echocardiogram was performed and showed an EF of 60% and no evidence of diastolic dysfunction which ruled out a cardiac source. A right upper quadrant ultrasound was done given her thrombocytopenia and showed cirrhosis and ascites. Bilateral venous duplexes were performed given her lower extremity edema and they were negative for acute DVT. She was pancultured here and her blood cultures were negative for growth, her urine culture exhibited no growth but her sputum culture showed mixed respiratory christel. She was treated for an aspiration pneumonia and will need to complete antibiotics at discharge for 3 more days. She was able to be extubated on October 07, 2021 and a better history was able to be obtained at that time. She told me that she had a known history of primary biliary cirrhosis and that she had esophageal banding done in November and June 2021 for GI bleeds. She has been followed previously at [facility] as she was living in [place] at the time. Her health has declined and her mobility has decreased in the last 18 months. She did admit to smoking but indicated she was down to 3 cigarettes a day prior to admission. We had extensive discussion with regards to her current health status and her chronic comorbidities and she changed her CODE STATUS to DNR CCA with no intubation and agreed to a palliative care/hospice consultation. She clinically improved and tolerated diuresis with Bumex well. We will discharge her with Bumex twice daily as well as spironolactone. She had been on Aldactone 200 mg twice daily. Given that Aldactone is not a great diuretic we will decrease the dose to 50 mg twice daily and continue her on Bumex as noted previously. She was also be followed by palliative care after discharge. As noted earlier she was found to have a fairly significant thrombocytopenia work-up for this was overall unimpressive and I suspect is related to splenomegaly related to her liver disease. Given her history of esophageal varices she was also started on nadolol 20 mg daily prior to discharge. She will be discharged to [facility] for continued rehab with the goal of returning home and improved function. As noted above medications were altered to better address her edema and liver failure. I have recommended follow-up with Dr. Omari vanegas in [place] for gastroenterology if she would like given that she is now living in [place]. She was discharged to skilled facility in stable condition. Discharge diagnoses: Acute hypoxic respiratory failure-multifactorial Chronic normocytic anemia Chronic thrombocytopenia Primary biliary cirrhosis History of esophageal varices Hypothyroidism GERD COPD Obesity Physical Exam Narrative Const alert, oriented x3 and no apparent distress Constitutional Narrative: Obese older white female sitting up in bed appears well, nontoxic, alert and oriented x3, appears comfortable General Appearance: cooperative, comfortable, well kempt and well developed Orientation / Consciousness: awake Exam Limitations: no limitations Nutritional Appearance: obese HEENT normocephalic, head/scalp atraumatic, hearing grossly normal bilaterally and moist oral mucous membranes Eyes PERRL and EOMs intact bilaterally Eyes Narrative: Conjunctiva are mildly pale, no scleral icterus Neck no lymphadenopathy, supple and no JVD Neck Narrative: Trachea midline, no thyroid enlargement Resp normal respiratory effort, no retractions, no use of accessory muscles and clear to auscultation bilaterally Resp Narrative: Diffusely diminished, cough is rhonchorous but no further rhonchi in lungs Auscultation: Negative for crackles, rales, rhonchi or wheezes Cardio regular rate, regular rhythm, S1 normal heart sound, S2 normal heart sound, no murmurs, no rub, no gallops, no clicks and no JVD GI normal to inspection, nondistended, normoactive bowel sounds, soft to palpation, non-tender and non-distended Extremity Extremity Narrative: Improved lower extremity edema, improved upper extremity edema, no cyanosis or clubbing, nicotine staining noted Skin no wounds, no jaundice, no petechiae and no mottling Skin Narrative: Erythema bilateral lower extremities Neuro oriented x3, moves all extremities and no focal motor deficits Neuro Narrative: Follows commands Sensorium / Orientation: awake and alert Psych affect normal Psych Narrative: Very pleasant Weight / BMI Weight Weight: 83.2 kg Body Mass Index (BMI) 30.7 ABG / Lab / Microbiology Data Result Diagrams: 10/09/21 02:00 10/09/21 02:00 Laboratory: Laboratory Results - last 24 hr 10/06/21 03:20: Diff Path Review Reviewed 10/07/21 04:46: Diff Path Review Reviewed 10/09/21 02:00: WBC 3.8 L, RBC 3.37 L, Hgb 10.2 L, Hct 33.3 L, MCV 98.8, MCH 30.3, MCHC 30.6 L, RDW Std Deviation 55.3 H, RDW Coeff of Krissy 15.5 H, Plt Count 69 L, MPV 9.9, Immature Gran % (Auto) 0.500, Neut % (Auto) 58.9, Lymph % (Auto) 22.5, [place] % (Auto) 13.4 H, Eos % (Auto) 4.2, Baso % (Auto) 0.5, Absolute Neuts (auto) 2.3, Absolute Lymphs (auto) 0.86, Nucleated RBC % 0 10/09/21 02:00: Sodium 144, Potassium 3.2 L, Chloride 104, Carbon Dioxide 35.0 H, Anion Gap 5, BUN 33 H, Creatinine 0.76, Estim Creat Clear Calc 47.10, Est GFR (MDRD) Af Amer 97, Est GFR (MDRD) Non-Af 80, BUN/Creatinine Ratio 43.6 H, Glucose 113 H, Calcium 8.4 L 10/09/21 12:52: COVID-19 (AMILCAR) Negative Microbiology: Microbiology 10/05/21 04:10 Sputum, Tracheal Aspirate Gram Stain - Final 10/05/21 04:10 Sputum, Tracheal Aspirate Respiratory Culture - Final Mixed normal respiratory christel. No Streptococcus pneumoniae, beta-hemolytic Streptococcus or Staphylococcus aureus isolated. 10/05/21 08:25 Urine Catheter - Henson Urine Culture - Final Culture exhibits no growth. 10/05/21 04:30 Blood Culture (Wb) - Line Draw Blood Culture - Preliminary No growth in 48 hours. 10/05/21 04:00 Blood Culture (Wb) - Line Draw Blood Culture - Preliminary No growth in 48 hours. 10/05/21 09:25 Mucosa - Nasopharyngeal Respiratory Panel (PCR) - Final 10/05/21 03:45 Urine Catheter - Henson Legionella Antigen - Final 10/05/21 03:45 Urine Catheter - Henosn Streptococcus pneumoniae Antigen (M - Final Radiography Diagnostic Testing: Radiology Impression Venous Doppler Study 10/06/21 16:29 Interpretation Summary No evidence for acute deep venous thrombosis bilateral lower extremities with patent and compressible bilateral great saphenous veins. Exam limitations as noted. Ordering Physician: Marguerite Moss Referring Physician: Maty Pineda Performed By: Venessa Briscoe RVT D/C Instructions Discharge Diet: 2000 mg Sodium Diet and - (1500 cc fluid restriction) Discharge Activity: Return to Normal Activity Meaningful Use Info Meaningful Use Diagnoses (Choose all that apply): None applicable Discharge Plan Admission Admit Date/Time: 12/03/21 02:51 Primary Reason for Your Visit: Shortness of breath/lower extremity edema Attending Provider: Marguerite Moss Primary Care Provider: Maty Pineda NP Consulting Providers: Arpan Franklin ; Karley Putnam ; Geremias Ortega ; Malina Hill ; Shireen Harman ; Gwen Winn ; Cathy Gold ANIMAL NUTRITION TEACHER ; Petey Love ; Sunita Peguero ANIMAL NUTRITION TEACHER Discharge Orders/Prescriptions Prescriptions: New amoxicillin-pot clavulanate [Augmentin XR] 1,000-62.5 mg tablet extended release 12 hr 1 tab PO BID Qty: 4 RF: 0 acetaminophen [Tylenol] 325 mg Tablet 650 mg PO Q4H PRN PRN (Reason: pain/fever) Qty: 0 RF: 0 bumetanide 2 mg Tablet 2 mg PO BIDLX Qty: 0 RF: 0 albuterol sulfate 2.5 mg /3 mL (0.083 %) Solution For Nebulization 2.5 mg inhalation Q2H PRN PRN (Reason: SOB/Wheezing) Qty: 0 RF: 0 ipratropium-albuterol 0.5 mg-3 mg(2.5 mg base)/3 mL Solution For Nebulization 3 ml inhalation Q6HWA.RT Qty: 0 RF: 0 Jamil (with collagen) 7-7-1.5 gram Powder In Packet 1 packet PO BIDCM Qty: 0 RF: 0 melatonin 10 mg Tablet, Sublingual 5 mg PO QHS Qty: 0 RF: 0 polyethylene glycol 3350 17 gram Powder In Packet 17 g PO DAILY Qty: 0 RF: 0 spironolactone 50 mg Tablet 50 mg PO BID Qty: 0 RF: 0 Continued methocarbamol 500 mg tablet 500 mg PO TID RF: 0 fluticasone propion-salmeterol [Advair Diskus] 250-50 mcg/dose blister with device 1 INHALATION BID RF: 0 albuterol sulfate 2.5 mg /3 mL (0.083 %) solution for nebulization 1 inhalation Q4H PRN (Reason: SOB) RF: 0 pantoprazole 40 mg tablet,delayed release (DR/EC) 40 mg PO DAILY RF: 0 ursodiol 300 mg capsule 600 mg PO Q12H RF: 0 dicyclomine 10 mg capsule 10 mg TID RF: 0 oxycodone 5 mg tablet 5 mg PO Q6H PRN (Reason: Pain) RF: 0 Discontinued spironolactone 100 mg tablet 200 mg PO BID RF: 0 metoprolol tartrate 25 mg tablet 25 mg PO DAILY RF: 0 Referrals / Follow Up: Maty Pineda NP, ANIMAL NUTRITION TEACHER-C [Primary Care Provider] - Within 1 Month Colin Salcido DO [STAFF PHYSICIAN] - Within 1 Month (For Liver follow up if you would like to follow up closer to home) Disposition Disposition (needs filled in before D/C Order can be placed): Detention Facility Charges/Coding Visit Charges Inpatient E&M: 90469 SNF Disch >30 Min
--- NOTE | 2021-10-09 15:22 | CASEMGMT ---
Pt is ready for discharge to [facility] today. SW completed hospital exemption in the [facility] system. [facility] set up a pm ambulance w/Physicians. KRIS let pt, pt's daughter, bedside RN, and Cira at [facility] know time of pickup. All discharge instructions faxed to [facility]. Pt going to [facility] skilled, for a convalescent stay, no further needs anticipated at this time. NOHEMY Valadez
[2021-10-09] MEDS: Albuterol 2.5 MG/3 ML VIAL.NEB. INHALATION (15:35)
--- NOTE | 2021-10-09 16:48 | NURSING ---
report called to maru Scott
[2021-10-10 08:10] LABS: HEPATITIS B SURFACE AG Negative (Negative); Hepatitis B Core Ab Total Positive (Negative); Hepatitis C Ab <0.1 s/co ratio (0.0-0.9)
[2021-10-10 09:35] LABS: Hep B Surface Antibodies Reactive (.)
== END 2021-10-09 16:52 | disposition skilled nursing facility (03) | DRG 208 ==
PROVIDERS: Admitting Provider Internal Medicine; PCP Nurse Practitioner Family; Visit Provider Internal Medicine
DX: J69.0 Pneumonitis due to inhalation of food and vomit (principal); J96.01 Acute respiratory failure with hypoxia; J44.0 Chronic obstructive pulmonary disease with (acute) lower respiratory infection; J44.1 Chronic obstructive pulmonary disease with (acute) exacerbation; R18.8 Other ascites; I25.10 Atherosclerotic heart disease of native coronary artery without angina pectoris; L89.150 Pressure ulcer of sacral region, unstageable; D64.9 Anemia, unspecified; D69.59 Other secondary thrombocytopenia; K74.3 Primary biliary cirrhosis; E03.9 Hypothyroidism, unspecified; K21.9 Gastro-esophageal reflux disease without esophagitis; J44.9 Chronic obstructive pulmonary disease, unspecified; E66.9 Obesity, unspecified; Z68.30 Body mass index [BMI] 30.0-30.9, adult; F17.210 Nicotine dependence, cigarettes, uncomplicated; Z87.19 Personal history of other diseases of the digestive system; Z66 Do not resuscitate
CPT/HCPCS: 31720; 36600; 71045; 76705; 80048; 80053; 81001; 82550; 82803; 83605; 83735; 84478; 84484; 85025; 85384; 85610; 85730; 86704; 86705; 86706; 86707; 86803; 87040; 87070; 87086; 87205; 87340; 87350; 87449; 87633; 87635; 87641; 93306; 93970; 94002; 94003; 94640; 94660; 97162; 97166; 97802; J7050; Q9957; U0005; A4216; C8929; J0295; J3010; J3490; U0003